=== PATIENT | female | born 1930 | race Caucasian/White ===

== ENCOUNTER 2018-01-07 16:19 | Inpatient (IN) | payer MEDICARE, MEDICAID ==
--- NOTE | 2018-01-07 16:39 | ED Physician Chart ---
ED Chief Complaint/HPI - Patient Information Date Seen:: 01/07/18 Time Seen:: 16:30 Chief Complaint:: increased agitation History of Present Illness:: At her extended care facility patient is reportedly been more agitated lately. She is having delusions and hallucinations. Claims that people are stealing her money and belongings. Allergies:: Allergies Allergy/AdvReac Type Severity Reaction Status Date / Time No Known Allergies Allergy Verified 01/25/16 13:42 Historian:: Patient, EMS Review:: Transfer documents Reviewed ED Review of Systems - Review of Systems General/Constitutional: No fever, No chills Skin: No skin lesions Head: No headache Eyes: No loss of vision ENT: No earache Neck: No neck pain, No swelling Cardio Vascular: No chest pain, No palpitations Pulmonary: No SOB GI: No nausea, No diarrhea G/U: No dysuria Musculoskeletal: No bone or joint pain Endocrine: No polyuria, No polydipsia Psychiatric: Prior psych history, Auditory hallucination Hematopoietic: No bruising Allergic/Immuno: No urticaria Neurological: No syncope, No focal symptoms ED Past Medical History - Past Medical History Past Medical History: Other (depression; psychosis; schizophrenia) Family History: Other (nonverbal) Social History: Non Smoker, No Alcohol, Care Facility Surgical History: None Psychiatricy History: Depression, Schizophrenia Medication: Reviewed Family Medical History - Family Member Father History Unknown: Yes Ethnicity: Living Status: Hx Family Cancer: No Hx Family Coronary Artery Disease: Yes Hx Family Congestive Heart Failure: No Hx Family Hypertension: No Hx Family Stroke: No Hx Family Diabetes: No Hx Family Seizures: No Hx Family Dementia: No Hx Family AIDS: No Hx Family HIV: No Hx Family COPD: No Hx Family Hepatitis: No Hx Family Psychiatric Problems: No Hx Family Tuberculosis: No Mother History Unknown: Yes Ethnicity: Living Status: Unknown Hx Family Cancer: (unknown) Hx Family Coronary Artery Disease: (unknown) Hx Family Congestive Heart Failure: (unknown) Hx Family Hypertension: (unknown) Hx Family Stroke: (unknown) Hx Family Diabetes: (unknown) Hx Family Seizures: (unknown) Hx Family Dementia: (unknown) Hx Family AIDS: (unknown) Hx Family COPD: (unknown) Hx Family Hepatitis: (unknown) Hx Family Psychiatric Problems: (unknown) Hx Family Tuberculosis: (unknown) ED Physical Exam - Physical Examination General/Constitutional: Awake, Well-developed, well-nourished, Alert, No distress, GCS 15, Non-toxic appearing, Ambulatory Head: Atraumatic Eyes: Lids, conjuctiva normal, PERRL, EOMI Skin: Nl inspection, No rash, No skin lesions, No ecchymosis, Well hydrated, No lymphadenopathy ENMT: External ears, nose nl, Nasal exam nl, Lips, teeth, gums nl Neck: Nontender, Full ROM w/o pain, No JVD, No nuchal rigidity, No bruit, No mass, No stridor Respiratory: Nl effort/Exclusion, Clear to Auscultation, No Wheeze/Rhonchi/Rales Other Cardio Vascular comments:: Heart sounds inaudible; pulse regular GI: No tenderness/rebounding/guarding, No organomegaly, No hernia, Normal BS's, Nondistended, No mass/bruits, No McBurney tenderness : No CVA tenderness Extremities: No tenderness or effusion, Full ROM, normal strength in all extremities, No edema, Normal digits & nails Neuro/Psych: No focal deficits Misc: Normal back, No paraspinal tenderness ED Labs/Radiology/EKG Results - Lab Results Results: Laboratory Results - last 24 hr 01/07/18 01/07/18 01/07/18 16:45 16:45 16:45 WBC 7.4 RBC 4.80 Hgb 13.7 Hct 41.1 MCV 85.8 MCH 28.5 MCHC Differential 33.2 RDW 14.1 Plt Count 248 MPV 8.0 Neutrophils % 64.8 Lymphocytes % 24.5 Monocytes % 9.4 Eosinophils % 0.5 Basophils % 0.8 Sodium 138 Potassium 4.0 Chloride 107 Carbon Dioxide 24.0 Anion Gap 11.0 BUN 22 Creatinine 0.9 Est GFR ( Amer) TNP Est GFR (Non-Af Amer) TNP BUN/Creatinine Ratio 24.4 Glucose 103 Calcium 9.3 Total Bilirubin 0.3 AST 16 ALT 15 Alkaline Phosphatase 68 Total Protein 6.6 Albumin 3.8 Globulin 2.8 Albumin/Globulin Ratio 1.4 Triglycerides 143 Cholesterol 218 H LDL Cholesterol Direct 137 HDL Cholesterol 55 TSH 1.02 - EKG Interpretations Rate & Rhythm: normal sinus rhythm with a rate at 82 [place]: normal Comments:: Right bundle-branch block ED Septic Shock - . Is Septic Shock (SBP<90, OR Lactate>4 mmol\L) present?: No ED Reassessment (Disposition) - Diagnosis Diagnosis:: Schizophrenia; paranoid ideation; dementia - Patient Disposition Admitted to:: [facility] Admitting Medical Physician:: Terrance Pantoja Admitting Psych Physician:: Adela Shin Condition at Disposition:: Stable, Unchanged
[2018-01-07 17:05] LABS: % BASOPHILS 0.8 % (0.0-2.0); % EOSINOPHILS 0.5 % (0.0-5.0); % LYMPHOCYTES 24.5 % (20.0-50.0); % MONOCYTES 9.4 % (2.0-10.0); % NEUTROPHILS 64.8 % (40.0-80.0); BASOPHILE ABSOLUTE 0.1 Th/cumm (0-0.2); HEMATOCRIT 41.1 % (41.0-60); HEMOGLOBIN 13.7 gm/dL (12-16); LYMPHOCYTE ABSOLUTE 1.8 Th/cmm (1.5-3.0); MEAN CELL VOLUME 85.8 fl (81-100); MEAN CORPUSCULAR HEMOGLOBIN 28.5 pg (27.0-31.0); MEAN CORPUSCULAR HGB CONC 33.2 pg (28.0-36.0); MONOCYTE ABSOLUTE 0.7 Th/cmm (0.3-1.0); NEUTROPHILE ABSOLUTE 4.8 Th/cmm (1.8-8.0); PLATELET COUNT 248 Th/cmm (150-400); RED CELL DISTRIBUTION WIDTH 14.1 % (11.5-20.0); WHITE BLOOD COUNT 7.4 Th/cmm (4.8-10.8)
[2018-01-07 17:18] LABS: ALB/GLOB RATIO 1.4 (1.0-1.8); ALBUMIN 3.8 gm/dL (3.7-5.3); ALKALINE PHOSPHATASE 68 U/L (34-104); BILIRUBIN,TOTAL 0.3 mg/dL (0.3-1.0); BUN - UREA NITROGEN 22 mg/dL (7-25); CALCIUM SERUM 9.3 mg/dL (8.6-10.3); CHLORIDE 107 mEq/L (98-107); CHOLESTEROL 218 mg/dL (<200); CREATININE - SERUM 0.9 mg/dL (0.6-1.2); GLUCOSE 103 mg/dL (70-105); HDL -HIGH DENSITY LIPOPROTEIN 55 mg/dL (23-92); SGOT 16 U/L (13-39); SGPT/ALT 15 U/L (7-52); SODIUM SERUM 138 mEq/L (136-145); TOTAL PROTEIN,SERUM 6.6 gm/dL (6.0-8.3); TRIGLYCERIDES 143 mg/dL (<150)
[2018-01-07 20:29] VITALS: BP 127/80
[2018-01-07] MEDS ORDERED: Promethazine DM 6.25/15mg-5mL 5 ML SYR PO PRN (21:55)
[2018-01-07] MEDS ORDERED: Magnesium Hydroxide (MOM) 30 mL UDC PO PRN (21:55)
--- NOTE | 2018-01-08 08:17 | History and Physical ---
History of Present Illness - HPI Chief Complaint: Increased agitation HPI: 87 y/o female who presents to [facility] ER for increased [facility]. At her extended care facility patient is reportedly been more agitated lately. She is having delusions and hallucinations. Claims that people are stealing her money and belongings. Patient was subsequently admitted for further evaluation and treatment. Vital Signs: Last Vital Signs Temp 98.2 F 01/08/18 06:14 Pulse 80 01/08/18 06:14 Resp 19 01/08/18 06:14 BP 123/74 01/08/18 06:14 Pulse Ox 97 01/08/18 06:14 Past Medical History Cardiovascular: Report: No Pertinent Hx Pulmonary: Report: No Pertinent Hx RADIUS GRINDER: Report: Dementia GI: Report: No Pertinent Hx Psych: Report: Depression, Psychosis, Schizophrenia Musculoskeletal: Report: No Pertinent Hx Infectious Disease: Report: No Pertinent Hx Renal/: Report: No Pertinent Hx Endocrine: Report: No Pertinent Hx Dermatology: Report: No Pertinent Hx - Past Surgical History Past Surgical History: No pertinent Hx Family Medical History - Family Member Father History Unknown: Yes Name:: Trista Fernandez Age: 87 Ethnicity: Living Status: Hx Family Cancer: (UNKNOWN) Hx Family Coronary Artery Disease: (UNKNOWN) Hx Family Congestive Heart Failure: (UNKNOWN) Hx Family Hypertension: (UNKNOWN) Hx Family Stroke: (UNKNOWN) Hx Family Diabetes: (UNKNOWN) Hx Family Seizures: (UNKNOWN) Hx Family Dementia: (UNKNOWN) Hx Family AIDS: (UNKNOWN) Hx Family HIV: No Hx Family COPD: (UNKNOWN) Hx Family Hepatitis: (UNKNOWN) Hx Family Psychiatric Problems: (UNKNOWN) Hx Family Tuberculosis: (UNKNOWN) Mother History Unknown: Yes Ethnicity: Unknown Living Status: Unknown Hx Family Cancer: (unknown) Hx Family Coronary Artery Disease: (unknown) Hx Family Congestive Heart Failure: (unknown) Hx Family Hypertension: (unknown) Hx Family Stroke: (unknown) Hx Family Diabetes: (unknown) Hx Family Seizures: (unknown) Hx Family Dementia: (unknown) Hx Family AIDS: (unknown) Hx Family COPD: (unknown) Hx Family Hepatitis: (unknown) Hx Family Psychiatric Problems: (unknown) Hx Family Tuberculosis: (unknown) Social History Smoke: No Alcohol: None Drugs: None Lives: Alone - Medications Home Medications: Home Medication Medication Instructions Recorded Type Acetaminophen [Tylenol] 650 mg PO Q4H PRN #0 tab 10/22/15 Rx Docusate Sodium [Colace] 100 mg PO BID #0 cap 10/22/15 Rx Donepezil Hcl [Aricept] 5 mg PO HS #0 tab 10/22/15 Rx Escitalopram Oxalate [Lexapro] 10 mg PO DAILY #0 tab 10/22/15 Rx Memantine [Namenda] 10 mg PO DAILY #0 tab 10/22/15 Rx Multivitamin w/ Minerals 1 tab PO DAILY #0 tab 10/22/15 Rx [Theragran M] Magnesium Hydroxide [Milk of 30 ml PO DAILY PRN #0 udc 02/05/16 Rx Magnesia] Ciprofloxacin [Cipro] 500 mg PO Q12HR tab 05/15/17 Rx Haloperidol [Haldol*] 0.5 mg PO HS tab 05/15/17 Rx Lactobacillus Rhamnosus 1 each PO DAILY cap.sprink 05/15/17 Rx [Culturelle] Lorazepam [Ativan] 0.5 mg PO Q4HR PRN tab 05/15/17 Rx Promethazine DM 6.25/15mg-5mL 5 ml PO Q8H PRN syr 05/15/17 Rx [Phenergan DM 6.25/15mg-5 mL] Zolpidem Tartrate [Ambien] 5 mg PO HS PRN tab 05/15/17 Rx traMADol HCl [Ultram*] 50 mg PO Q12H PRN tab 05/15/17 Rx - Allergies Allergies/Adverse Reactions: Allergies Allergy/AdvReac Type Severity Reaction Status Date / Time No Known Allergies Allergy Verified 01/07/18 19:00 Review of Systems - Review of Systems Constitutional: Report: No Significant Eyes: Report: No Significant Respiratory: Report: No Significant Cardiovascular: Report: No Significant Gastrointestinal: Report: No Significant Genitourinary: Report: No Significant Musculoskeletal: Report: No Significant Skin: Report: No Significant Neurological: Report: No Significant Physical Exam - Physical Exam HEENT: Report: Ears Nose Throat within normal limits, Pharnyx within normal limits Neck: Report: Within normal limits Cardiovascular Systems: Report: +s1/s2 noted, Regular, Rate and Rhythm Respiratory: Report: Breath Sounds are within normal limits, Clear to Auscultation of lung quiros Back: Report: Inspection of back is within normal limits. Extremities: Report: Non-tender to palpation. Skin: Report: Color of skin is within normal limits Neuro/Psych: Report: Mood affect is within normal limits, A+Ox3, CN II-XII intact - Lab Results All Lab Results last 24 hours: Laboratory Results - last 24 hr 01/07/18 01/07/18 01/07/18 16:45 16:45 16:45 WBC 7.4 RBC 4.80 Hgb 13.7 Hct 41.1 MCV 85.8 MCH 28.5 MCHC Differential 33.2 RDW 14.1 Plt Count 248 MPV 8.0 Neutrophils % 64.8 Lymphocytes % 24.5 Monocytes % 9.4 Eosinophils % 0.5 Basophils % 0.8 Sodium 138 Potassium 4.0 Chloride 107 Carbon Dioxide 24.0 Anion Gap 11.0 BUN 22 Creatinine 0.9 Est GFR ( Amer) TNP Est GFR (Non-Af Amer) TNP BUN/Creatinine Ratio 24.4 Glucose 103 Calcium 9.3 Total Bilirubin 0.3 AST 16 ALT 15 Alkaline Phosphatase 68 Total Protein 6.6 Albumin 3.8 Globulin 2.8 Albumin/Globulin Ratio 1.4 Triglycerides 143 Cholesterol 218 H LDL Cholesterol Direct 137 HDL Cholesterol 55 TSH 1.02 RPR 01/07/18 16:45 WBC RBC Hgb Hct MCV MCH MCHC Differential RDW Plt Count MPV Neutrophils % Lymphocytes % Monocytes % Eosinophils % Basophils % Sodium Potassium Chloride Carbon Dioxide Anion Gap BUN Creatinine Est GFR ( Amer) Est GFR (Non-Af Amer) BUN/Creatinine Ratio Glucose Calcium Total Bilirubin AST ALT Alkaline Phosphatase Total Protein Albumin Globulin Albumin/Globulin Ratio Triglycerides Cholesterol LDL Cholesterol Direct HDL Cholesterol TSH RPR NONREACTIVE - Assessment Assessment: psychosis depression schizophrenia dementia - Plan Plan: admit to [facility] continue current medications.
[2018-01-08] MEDS: Multivitamin w/ Minerals Tab PO SCH (09:00)
[2018-01-08] MEDS: Lactobacillus Rhamnosus GG 15 Billion CFU CAP.SPRINK PO SCH (09:00)
[2018-01-08] MEDS ORDERED: LACTOBACILLUS RHAMNOSUS PO SCH (09:00)
[2018-01-08 21:52] LABS: A1C % 5.3 % (4.0-6.0)
--- NOTE | 2018-01-08 22:17 | Psychiatric Evaluation ---
DATE OF SERVICE: 01/08/2018 PSYCHIATRIC EVALUATION IDENTIFYING DATA: The patient is an 87-year-old resident of a half-way facility. Information obtained by directly interviewing the patient as well as reviewing the admission papers. JUSTIFICATION FOR HOSPITALIZATION: The patient is admitted here on a voluntary basis in view of her agitation and delusional behavior. CHIEF COMPLAINT: "They are stealing all my stuff." HISTORY OF PRESENT ILLNESS: This is one of multiple psychiatric hospitalizations for this patient who is known to me from the previous psychiatric hospitalizations and treatments and the patient on the day of the hospitalization has been mentioning that people have been stealing her stuff and that she is getting frustrated. The patient has been not sleeping and has been stating that all her bank accounts have been taken away and she needs to be taken care of. The patient is very guarded and suspicious at this time. PAST PSYCHIATRIC HISTORY: The patient had been hospitalized on multiple occasions. MEDICAL HISTORY AND PHYSICAL EXAMINATION: Requested to be by Dr. Pantoja. SUBSTANCE ABUSE HISTORY: None. PHYSICAL OR SEXUAL ABUSE HISTORY: None. LEGAL PROBLEMS: None at this time. STRENGTH AND ASSETS: The patient is motivated. MENTAL STATUS EXAMINATION: The patient is an 87-year-old woman, thin built, superficially cooperative. Eye contact is poor. Mood is noted to be irritable. Affect is constricted. Insight and judgment are noted to be impaired. Impulse control is noted to be limited. The patient has been having difficult time to cope with the stress. The patient at this time is not able to contract for safety. The patient is very paranoid and delusional that all her property and inheritance has been taken away and the patient needs to be closely monitoring her relatives who wants to come and then visit her. The patient at this time is not willing to comply with any of the request to be calmed down. ASSESSMENT: The patient is still grossly psychotic. PLAN: To continue the patient with the supportive therapy. Encouraged the patient to verbalize the concerns rather than to act out. JOB# [id number]
--- NOTE | 2018-01-09 06:01 | General Progress Note ---
Subjective - Review of Systems Service Date: 01/09/18 Subjective: Patient is awake, alert, no acute distress T 98.3 P 119 BP 130/87 R 20 Objective - Results Result Diagrams: 01/07/18 16:45 01/07/18 16:45 Recent Labs: Laboratory Last Values WBC 7.4 Th/cmm (4.8-10.8) 01/07/18 16:45 RBC 4.80 Mil/cmm (3.80-5.20) 01/07/18 16:45 Hgb 13.7 gm/dL (12-16) 01/07/18 16:45 Hct 41.1 % (41.0-60) 01/07/18 16:45 MCV 85.8 fl (81-100) 01/07/18 16:45 MCH 28.5 pg (27.0-31.0) 01/07/18 16:45 MCHC Differential 33.2 pg (28.0-36.0) 01/07/18 16:45 RDW 14.1 % (11.5-20.0) 01/07/18 16:45 Plt Count 248 Th/cmm (150-400) 01/07/18 16:45 MPV 8.0 fl 01/07/18 16:45 Neutrophils % 64.8 % (40.0-80.0) 01/07/18 16:45 Lymphocytes % 24.5 % (20.0-50.0) 01/07/18 16:45 Monocytes % 9.4 % (2.0-10.0) 01/07/18 16:45 Eosinophils % 0.5 % (0.0-5.0) 01/07/18 16:45 Basophils % 0.8 % (0.0-2.0) 01/07/18 16:45 Sodium 138 mEq/L (136-145) 01/07/18 16:45 Potassium 4.0 mEq/L (3.5-5.1) 01/07/18 16:45 Chloride 107 mEq/L (98-107) 01/07/18 16:45 Carbon Dioxide 24.0 mEq/L (21.0-31.0) 01/07/18 16:45 Anion Gap 11.0 (7.0-16.0) 01/07/18 16:45 BUN 22 mg/dL (7-25) 01/07/18 16:45 Creatinine 0.9 mg/dL (0.6-1.2) 01/07/18 16:45 Est GFR ( Amer) TNP 01/07/18 16:45 Est GFR (Non-Af Amer) TNP 01/07/18 16:45 BUN/Creatinine Ratio 24.4 01/07/18 16:45 Glucose 103 mg/dL (70-105) 01/07/18 16:45 Hemoglobin A1c % 5.3 % (4.0-6.0) 01/07/18 16:45 Calcium 9.3 mg/dL (8.6-10.3) 01/07/18 16:45 Total Bilirubin 0.3 mg/dL (0.3-1.0) 01/07/18 16:45 AST 16 U/L (13-39) 01/07/18 16:45 ALT 15 U/L (7-52) 01/07/18 16:45 Alkaline Phosphatase 68 U/L (34-104) 01/07/18 16:45 Total Protein 6.6 gm/dL (6.0-8.3) 01/07/18 16:45 Albumin 3.8 gm/dL (3.7-5.3) 01/07/18 16:45 Globulin 2.8 gm/dL 01/07/18 16:45 Albumin/Globulin Ratio 1.4 (1.0-1.8) 01/07/18 16:45 Triglycerides 143 mg/dL (<150) 01/07/18 16:45 Cholesterol 218 mg/dL (<200) H 01/07/18 16:45 LDL Cholesterol Direct 137 mg/dL (75-193) 01/07/18 16:45 HDL Cholesterol 55 mg/dL (23-92) 01/07/18 16:45 TSH 1.02 uIU/ml (0.34-5.60) 01/07/18 16:45 RPR NONREACTIVE (NONREACTIVE) 01/07/18 16:45 - Physical Exam Vitals and I&O: Vital Signs Temp 98.3 F 01/08/18 21:09 Pulse 119 01/08/18 21:09 Resp 20 01/08/18 21:09 BP 130/87 01/08/18 21:09 Pulse Ox 93 01/08/18 21:09 Intake & Output 01/08/18 01/08/18 01/09/18 06:59 18:59 06:59 Intake Total 120 1350 Balance 120 1350 Intake: Oral 120 1350 Other: # Voids 3 3 # Bowel Movements 0 Stool Characteristics Formed Active Medications: Current Medications Acetaminophen (Tylenol) 650 mg PO Q4H PRN PRN Reason: MILD PAIN (LEVEL 1-3) Stop: 03/08/18 21:54 Docusate Sodium (Colace) 100 mg PO BID [facility] Stop: 03/09/18 08:59 Last Admin: 01/08/18 16:59 Dose: 100 mg Donepezil HCl (Aricept) 5 mg PO HS [facility] Stop: 03/09/18 20:59 Last Admin: 01/08/18 20:47 Dose: 5 mg Escitalopram Oxalate (Lexapro) 10 mg PO DAILY [facility]; Protocol Stop: 03/09/18 08:59 Last Admin: 01/08/18 09:00 Dose: 10 mg Haloperidol (Haldol) 0.5 mg PO HS [facility]; Protocol Stop: 03/09/18 20:59 Last Admin: 01/08/18 20:47 Dose: 0.5 mg Lactobacillus Rhamnosus (Culturelle 15b) 1 each PO DAILY [facility] Stop: 03/09/18 08:59 Last Admin: 01/08/18 09:00 Dose: 1 each Lorazepam (Ativan) 0.5 mg PO Q4HR PRN; Protocol PRN Reason: Anxiety Stop: 03/08/18 21:54 Last Admin: 01/08/18 16:59 Dose: 0.5 mg Magnesium Hydroxide (Milk Of Magnesia) 30 ml PO DAILY PRN PRN Reason: Constipation Stop: 03/08/18 21:54 Memantine (Namenda) 10 mg PO DAILY [facility] Stop: 03/09/18 08:59 Last Admin: 01/08/18 09:00 Dose: 10 mg Promethazine HCl/Dextromethorphan (Phenergan Dm 6.25/15mg-5 Ml) 5 ml PO Q8H PRN PRN Reason: Cough Stop: 03/08/18 21:54 Tramadol HCl (Ultram) 50 mg PO BID PRN PRN Reason: Pain (Severe) Stop: 03/08/18 21:54 Zolpidem Tartrate (Ambien) 5 mg PO HS PRN PRN Reason: Insomnia Stop: 03/08/18 21:54 Last Admin: 01/08/18 20:48 Dose: 5 mg General: No acute distress HEENT: Atraumatic, PERRLA, EOMI Neck: Supple Cardiovascular: Regular rate, Normal S1, Normal S2 Lungs: Clear to auscultation Abdomen: Bowel sounds Extremities: no Clubbing, no Cyanosis, no Edema - Procedures Procedures: Procedures Procedure Code Date GROUP PSYCHOTHERAPY 76822 10/12/15 GROUP PSYCHOTHERAPY GZHZZZZ 10/12/15 GROUP PSYCHOTHERAPY 34845 03/15/15 GROUP PSYCHOTHERAPY GZHZZZZ 03/15/15 OTHER GROUP THERAPY 94.44 12/18/14 Assessment/Plan - Assessment Assessment: psychosis depression schizophrenia dementia - Plan [facility] current medications.
[2018-01-09] MEDS: Lactobacillus Rhamnosus GG 15 Billion CFU CAP.SPRINK PO SCH (09:57)
[2018-01-09] MEDS: Multivitamin w/ Minerals Tab PO SCH (09:57)
--- NOTE | 2018-01-09 16:34 | Progress Notes ---
DATE: 01/09/2018 SUBJECTIVE: Staff was spoke to. The patient is interviewed. Mood is noted to be irritable. The patient has paranoid delusions. Coping skills are noted to be extremely poor. Insight and judgment also noted to be limited. The patient has been having difficult time to cope with the stress. The patient is feeling frustrated at this time. The patient is holding the doll and stating that it is her baby and the patient is also noted to be extremely delusional and is stating that her has been here last night and he has been trying to give her a lot of pills and he wants to kill her. That is the reason why the patient is scared of taking any of the medications. ASSESSMENT: The patient is still grossly psychotic. PLAN: To continue the patient with the supportive therapy. Encouraged the patient to verbalize the concerns rather than to act out. JOB# [id number]
--- NOTE | 2018-01-10 06:10 | General Progress Note ---
Subjective - Review of Systems Service Date: 01/10/18 Subjective: Patient is awake, alert, no acute distress T 98.6 P 81 BP 127/62 R 19 Objective - Results Result Diagrams: 01/07/18 16:45 01/07/18 16:45 Recent Labs: Laboratory Last Values WBC 7.4 Th/cmm (4.8-10.8) 01/07/18 16:45 RBC 4.80 Mil/cmm (3.80-5.20) 01/07/18 16:45 Hgb 13.7 gm/dL (12-16) 01/07/18 16:45 Hct 41.1 % (41.0-60) 01/07/18 16:45 MCV 85.8 fl (81-100) 01/07/18 16:45 MCH 28.5 pg (27.0-31.0) 01/07/18 16:45 MCHC Differential 33.2 pg (28.0-36.0) 01/07/18 16:45 RDW 14.1 % (11.5-20.0) 01/07/18 16:45 Plt Count 248 Th/cmm (150-400) 01/07/18 16:45 MPV 8.0 fl 01/07/18 16:45 Neutrophils % 64.8 % (40.0-80.0) 01/07/18 16:45 Lymphocytes % 24.5 % (20.0-50.0) 01/07/18 16:45 Monocytes % 9.4 % (2.0-10.0) 01/07/18 16:45 Eosinophils % 0.5 % (0.0-5.0) 01/07/18 16:45 Basophils % 0.8 % (0.0-2.0) 01/07/18 16:45 Sodium 138 mEq/L (136-145) 01/07/18 16:45 Potassium 4.0 mEq/L (3.5-5.1) 01/07/18 16:45 Chloride 107 mEq/L (98-107) 01/07/18 16:45 Carbon Dioxide 24.0 mEq/L (21.0-31.0) 01/07/18 16:45 Anion Gap 11.0 (7.0-16.0) 01/07/18 16:45 BUN 22 mg/dL (7-25) 01/07/18 16:45 Creatinine 0.9 mg/dL (0.6-1.2) 01/07/18 16:45 Est GFR ( Amer) TNP 01/07/18 16:45 Est GFR (Non-Af Amer) TNP 01/07/18 16:45 BUN/Creatinine Ratio 24.4 01/07/18 16:45 Glucose 103 mg/dL (70-105) 01/07/18 16:45 Hemoglobin A1c % 5.3 % (4.0-6.0) 01/07/18 16:45 Calcium 9.3 mg/dL (8.6-10.3) 01/07/18 16:45 Total Bilirubin 0.3 mg/dL (0.3-1.0) 01/07/18 16:45 AST 16 U/L (13-39) 01/07/18 16:45 ALT 15 U/L (7-52) 01/07/18 16:45 Alkaline Phosphatase 68 U/L (34-104) 01/07/18 16:45 Total Protein 6.6 gm/dL (6.0-8.3) 01/07/18 16:45 Albumin 3.8 gm/dL (3.7-5.3) 01/07/18 16:45 Globulin 2.8 gm/dL 01/07/18 16:45 Albumin/Globulin Ratio 1.4 (1.0-1.8) 01/07/18 16:45 Triglycerides 143 mg/dL (<150) 01/07/18 16:45 Cholesterol 218 mg/dL (<200) H 01/07/18 16:45 LDL Cholesterol Direct 137 mg/dL (75-193) 01/07/18 16:45 HDL Cholesterol 55 mg/dL (23-92) 01/07/18 16:45 TSH 1.02 uIU/ml (0.34-5.60) 01/07/18 16:45 RPR NONREACTIVE (NONREACTIVE) 01/07/18 16:45 - Physical Exam Vitals and I&O: Vital Signs Temp 98.6 F 01/09/18 20:17 Pulse 81 01/09/18 20:17 Resp 19 01/09/18 20:17 BP 127/62 01/09/18 20:17 Pulse Ox 94 01/09/18 20:17 Intake & Output 01/09/18 01/09/18 01/10/18 06:59 18:59 06:59 Intake Total 960 240 Output Total 1 Balance 960 239 Intake: Oral 960 240 Output: Urine/Stool Mix 1 Other: # Voids 3 1 # Bowel Movements 1 Active Medications: Current Medications Acetaminophen (Tylenol) 650 mg PO Q4H PRN PRN Reason: MILD PAIN (LEVEL 1-3) Stop: 03/08/18 21:54 Docusate Sodium (Colace) 100 mg PO BID [facility] Stop: 03/09/18 08:59 Last Admin: 01/09/18 17:42 Dose: 100 mg Donepezil HCl (Aricept) 5 mg PO HS [facility] Stop: 03/09/18 20:59 Last Admin: 01/09/18 21:00 Dose: 5 mg Escitalopram Oxalate (Lexapro) 10 mg PO DAILY [facility]; Protocol Stop: 03/09/18 08:59 Last Admin: 01/09/18 09:57 Dose: 10 mg Haloperidol (Haldol) 0.5 mg PO HS [facility]; Protocol Stop: 03/09/18 20:59 Last Admin: 01/09/18 20:59 Dose: 0.5 mg Lactobacillus Rhamnosus (Culturelle 15b) 1 each PO DAILY [facility] Stop: 03/09/18 08:59 Last Admin: 01/09/18 09:57 Dose: 1 each Lorazepam (Ativan) 0.5 mg PO Q4HR PRN; Protocol PRN Reason: Anxiety Stop: 03/08/18 21:54 Last Admin: 01/08/18 16:59 Dose: 0.5 mg Magnesium Hydroxide (Milk Of Magnesia) 30 ml PO DAILY PRN PRN Reason: Constipation Stop: 03/08/18 21:54 Memantine (Namenda) 10 mg PO DAILY [facility] Stop: 03/09/18 08:59 Last Admin: 01/09/18 09:57 Dose: 10 mg Promethazine HCl/Dextromethorphan (Phenergan Dm 6.25/15mg-5 Ml) 5 ml PO Q8H PRN PRN Reason: Cough Stop: 03/08/18 21:54 Tramadol HCl (Ultram) 50 mg PO BID PRN PRN Reason: Pain (Severe) Stop: 03/08/18 21:54 Zolpidem Tartrate (Ambien) 5 mg PO HS PRN PRN Reason: Insomnia Stop: 03/08/18 21:54 Last Admin: 01/08/18 20:48 Dose: 5 mg General: No acute distress HEENT: Atraumatic, PERRLA, EOMI Neck: Supple Cardiovascular: Regular rate, Normal S1, Normal S2 Lungs: Clear to auscultation Abdomen: Bowel sounds Extremities: no Clubbing, no Cyanosis, no Edema - Procedures Procedures: Procedures Procedure Code Date GROUP PSYCHOTHERAPY 93015 10/12/15 GROUP PSYCHOTHERAPY GZHZZZZ 10/12/15 GROUP PSYCHOTHERAPY 25114 03/15/15 GROUP PSYCHOTHERAPY GZHZZZZ 03/15/15 OTHER GROUP THERAPY 94.44 12/18/14 Assessment/Plan - Assessment Assessment: psychosis depression schizophrenia dementia - Plan Plan: continue current medications.
[2018-01-10] MEDS: Lactobacillus Rhamnosus GG 15 Billion CFU CAP.SPRINK PO SCH (09:02)
[2018-01-10] MEDS: Multivitamin w/ Minerals Tab PO SCH (09:02)
--- NOTE | 2018-01-10 17:41 | Progress Notes ---
DATE: 01/10/2018 SUBJECTIVE: Staff was spoken to. The patient is interviewed. Mood is noted to be irritable. Affect is constricted. Insight and judgment at this time are noted to be still impaired. Impulse control is noted to be limited. Coping skills are noted to be limited. The patient has been having difficult time to cope with the stress. The patient continues to be very paranoid and is holding the dolls and stating that she is talking to her daughter and that is her baby. The patient is also still very much preoccupied with the trying to come in and hurt her with a bunch of pills. ASSESSMENT: The patient is still grossly psychotic. PLAN: To continue the patient with the supportive therapy and followup. [facility]# [id number]
--- NOTE | 2018-01-11 08:19 | General Progress Note ---
Subjective - Review of Systems Service Date: 01/11/18 Subjective: Patient is awake, alert, no acute distress T 98.3 P 80 BP 124/71 R 19 Objective - Results Result Diagrams: 01/07/18 16:45 01/07/18 16:45 Recent Labs: Laboratory Last Values WBC 7.4 Th/cmm (4.8-10.8) 01/07/18 16:45 RBC 4.80 Mil/cmm (3.80-5.20) 01/07/18 16:45 Hgb 13.7 gm/dL (12-16) 01/07/18 16:45 Hct 41.1 % (41.0-60) 01/07/18 16:45 MCV 85.8 fl (81-100) 01/07/18 16:45 MCH 28.5 pg (27.0-31.0) 01/07/18 16:45 MCHC Differential 33.2 pg (28.0-36.0) 01/07/18 16:45 RDW 14.1 % (11.5-20.0) 01/07/18 16:45 Plt Count 248 Th/cmm (150-400) 01/07/18 16:45 MPV 8.0 fl 01/07/18 16:45 Neutrophils % 64.8 % (40.0-80.0) 01/07/18 16:45 Lymphocytes % 24.5 % (20.0-50.0) 01/07/18 16:45 Monocytes % 9.4 % (2.0-10.0) 01/07/18 16:45 Eosinophils % 0.5 % (0.0-5.0) 01/07/18 16:45 Basophils % 0.8 % (0.0-2.0) 01/07/18 16:45 Sodium 138 mEq/L (136-145) 01/07/18 16:45 Potassium 4.0 mEq/L (3.5-5.1) 01/07/18 16:45 Chloride 107 mEq/L (98-107) 01/07/18 16:45 Carbon Dioxide 24.0 mEq/L (21.0-31.0) 01/07/18 16:45 Anion Gap 11.0 (7.0-16.0) 01/07/18 16:45 BUN 22 mg/dL (7-25) 01/07/18 16:45 Creatinine 0.9 mg/dL (0.6-1.2) 01/07/18 16:45 Est GFR ( Amer) TNP 01/07/18 16:45 Est GFR (Non-Af Amer) TNP 01/07/18 16:45 BUN/Creatinine Ratio 24.4 01/07/18 16:45 Glucose 103 mg/dL (70-105) 01/07/18 16:45 Hemoglobin A1c % 5.3 % (4.0-6.0) 01/07/18 16:45 Calcium 9.3 mg/dL (8.6-10.3) 01/07/18 16:45 Total Bilirubin 0.3 mg/dL (0.3-1.0) 01/07/18 16:45 AST 16 U/L (13-39) 01/07/18 16:45 ALT 15 U/L (7-52) 01/07/18 16:45 Alkaline Phosphatase 68 U/L (34-104) 01/07/18 16:45 Total Protein 6.6 gm/dL (6.0-8.3) 01/07/18 16:45 Albumin 3.8 gm/dL (3.7-5.3) 01/07/18 16:45 Globulin 2.8 gm/dL 01/07/18 16:45 Albumin/Globulin Ratio 1.4 (1.0-1.8) 01/07/18 16:45 Triglycerides 143 mg/dL (<150) 01/07/18 16:45 Cholesterol 218 mg/dL (<200) H 01/07/18 16:45 LDL Cholesterol Direct 137 mg/dL (75-193) 01/07/18 16:45 HDL Cholesterol 55 mg/dL (23-92) 01/07/18 16:45 TSH 1.02 uIU/ml (0.34-5.60) 01/07/18 16:45 RPR NONREACTIVE (NONREACTIVE) 01/07/18 16:45 - Physical Exam Vitals and I&O: Vital Signs Temp 98.3 F 01/11/18 06:16 Pulse 80 01/11/18 06:16 Resp 19 01/11/18 06:16 BP 124/71 01/11/18 06:16 Pulse Ox 96 01/11/18 06:16 Intake & Output 01/10/18 01/11/18 01/11/18 18:59 06:59 18:59 Intake Total 180 Balance 180 Intake: Oral 180 Other: # Voids 1 # Bowel Movements 0 Active Medications: Current Medications Acetaminophen (Tylenol) 650 mg PO Q4H PRN PRN Reason: MILD PAIN (LEVEL 1-3) Stop: 03/08/18 21:54 Docusate Sodium (Colace) 100 mg PO BID [facility] Stop: 03/09/18 08:59 Last Admin: 01/10/18 17:27 Dose: Not Given Donepezil HCl (Aricept) 5 mg PO HS [facility] Stop: 03/09/18 20:59 Last Admin: 01/10/18 20:20 Dose: 5 mg Escitalopram Oxalate (Lexapro) 10 mg PO DAILY [facility]AYNA; Protocol Stop: 03/09/18 08:59 Last Admin: 01/10/18 09:02 Dose: 10 mg Haloperidol (Haldol) 0.5 mg PO HS SHAYNA; Protocol Stop: 03/09/18 20:59 Last Admin: 01/10/18 20:21 Dose: 0.5 mg Lactobacillus Rhamnosus (Culturelle 15b) 1 each PO DAILY [facility] Stop: 03/09/18 08:59 Last Admin: 01/10/18 09:02 Dose: 1 each Lorazepam (Ativan) 0.5 mg PO Q4HR PRN; Protocol PRN Reason: Anxiety Stop: 03/08/18 21:54 Last Admin: 01/10/18 20:20 Dose: 0.5 mg Magnesium Hydroxide (Milk Of Magnesia) 30 ml PO DAILY PRN PRN Reason: Constipation Stop: 03/08/18 21:54 Memantine (Namenda) 10 mg PO DAILY [facility] Stop: 03/09/18 08:59 Last Admin: 01/10/18 09:02 Dose: 10 mg Promethazine HCl/Dextromethorphan (Phenergan Dm 6.25/15mg-5 Ml) 5 ml PO Q8H PRN PRN Reason: Cough Stop: 03/08/18 21:54 Tramadol HCl (Ultram) 50 mg PO BID PRN PRN Reason: Pain (Severe) Stop: 03/08/18 21:54 Zolpidem Tartrate (Ambien) 5 mg PO HS PRN PRN Reason: Insomnia Stop: 03/08/18 21:54 Last Admin: 01/10/18 20:20 Dose: 5 mg General: No acute distress HEENT: Atraumatic, PERRLA, EOMI Neck: Supple Cardiovascular: Regular rate, Normal S1, Normal S2 Lungs: Clear to auscultation Abdomen: Bowel sounds Extremities: no Clubbing, no Cyanosis, no Edema - Procedures Procedures: Procedures Procedure Code Date GROUP PSYCHOTHERAPY 65035 10/12/15 GROUP PSYCHOTHERAPY GZHZZZZ 10/12/15 GROUP PSYCHOTHERAPY 44465 03/15/15 GROUP PSYCHOTHERAPY GZHZZZZ 03/15/15 OTHER GROUP THERAPY 94.44 12/18/14 Assessment/Plan - Assessment Assessment: psychosis depression schizophrenia dementia - Plan Plan: continue current medications.
[2018-01-11] MEDS: Lactobacillus Rhamnosus GG 15 Billion CFU CAP.SPRINK PO SCH (09:58)
[2018-01-11] MEDS: Multivitamin w/ Minerals Tab PO SCH (09:58)
--- NOTE | 2018-01-12 01:35 | Consultation ---
DATE OF CONSULTATION: 01/09/2018 REFERRING PHYSICIAN: Adela Shin MD TYPE OF CONSULTATION: Psychology. HISTORY OF PRESENT ILLNESS: The patient is an 87-year-old female. The patient is known to this play writer from multiple previous hospitalizations. The patient is a resident of [facility]. The patient is being admitted due to acute agitation as well as delusions. The patient reports that she believes that other residents and staff are stealing her belongings. The patient presents as extremely confused. The patient denied any suicidal ideation, plan or intention. PAST MEDICAL HISTORY: Please see history and physical by Dr. Pantoja. PAST PSYCHIATRIC HISTORY: The patient has multiple previous hospitalizations here at [facility] on the Geropsychiatric unit. 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 The patient is under the care of a psychiatrist at her placement. SUBSTANCE ABUSE HISTORY: None. PSYCHOSOCIAL HISTORY: The patient did not answer any of the questions including occupational history, educational history, or caodaism affiliation. The patient did not answer questions about history of physical or sexual abuse or current legal problems. The patient did not answer questions about family involvement. MENTAL STATUS EXAMINATION: The patient appears to be frail and her stated age. Attitude is uncooperative. Eye contact is poor. Mood is irritable. Affect is constricted. Speech is slow and delayed. Thought process shows to be confused. The patient's verbalizing suspiciousness about other residents and staff stealing her belongings. There is evidence of paranoid ideation. The patient denied any auditory or visual hallucinations. The patient's behavior on the unit has been somewhat redirectable. The patient is holding onto a doll and claiming that this is her baby. This delusion is persistent and has been part of her medical record upon each admission. She denied any suicidal ideation, plan or intention. Impulse control is limited. Concentration is poor. Sensorium is oriented to self only. The patient did not participate in the memory assessment. The patient did not participate in interpretation of proverbs. Insight is impaired. Judgment is impaired. DIAGNOSTIC IMPRESSION: AXIS I: 1. History of dementia with behavioral disturbance. 2. History of psychotic disorder, not otherwise specified. AXIS II: Deferred. AXIS III: Per Dr. Pantoja. TREATMENT PLAN: The patient has been seen by Dr. Shin for psychiatric evaluation and for the management of the patient's psychotropic medications. We will provide supportive psychotherapy to include reality orientation, differentiation and integration. We will continue to reassess the patient to determine whether she is able to demonstrate the capacity to benefit from psychotherapeutic services. We will continue behavioral management to include limit setting and coping skills. We will encourage the patient to be able to demonstrate emotional and self-regulation prior to her discharge. We will provide motivational enhancement for her to become compliant and stay compliant with all aspects of her care and treatment. Thank you, Dr. Shin for this consult and the opportunity to participate in this patient's care. JOB# [id number] SANG
--- NOTE | 2018-01-12 02:19 | Progress Notes ---
DATE: 01/11/2018 PSYCHIATRIC PROGRESS NOTE SUBJECTIVE: Staff was spoken to. The patient is interviewed. Mood is noted to be irritable. Affect is constricted. Insight and judgment at this time are noted to be still impaired. Impulse control is noted to be limited. Continues to be very paranoid. The patient has been having difficult time to cope with the stress. The patient is still hanging on to her toy and doll and stating that these are babies and she cannot let anyone touch. ASSESSMENT: The patient is still grossly psychotic. PLAN: To continue the patient with supportive therapy. I encouraged the patient to verbalize the concerns rather than to act out. JOB# [id number]
--- NOTE | 2018-01-12 08:22 | General Progress Note ---
Subjective - Review of Systems Service Date: 01/12/18 Subjective: Patient is awake, alert, no acute distress T 98.7 P 67 BP 103/55 R 20 Objective - Results Result Diagrams: 01/07/18 16:45 01/07/18 16:45 Recent Labs: Laboratory Last Values WBC 7.4 Th/cmm (4.8-10.8) 01/07/18 16:45 RBC 4.80 Mil/cmm (3.80-5.20) 01/07/18 16:45 Hgb 13.7 gm/dL (12-16) 01/07/18 16:45 Hct 41.1 % (41.0-60) 01/07/18 16:45 MCV 85.8 fl (81-100) 01/07/18 16:45 MCH 28.5 pg (27.0-31.0) 01/07/18 16:45 MCHC Differential 33.2 pg (28.0-36.0) 01/07/18 16:45 RDW 14.1 % (11.5-20.0) 01/07/18 16:45 Plt Count 248 Th/cmm (150-400) 01/07/18 16:45 MPV 8.0 fl 01/07/18 16:45 Neutrophils % 64.8 % (40.0-80.0) 01/07/18 16:45 Lymphocytes % 24.5 % (20.0-50.0) 01/07/18 16:45 Monocytes % 9.4 % (2.0-10.0) 01/07/18 16:45 Eosinophils % 0.5 % (0.0-5.0) 01/07/18 16:45 Basophils % 0.8 % (0.0-2.0) 01/07/18 16:45 Sodium 138 mEq/L (136-145) 01/07/18 16:45 Potassium 4.0 mEq/L (3.5-5.1) 01/07/18 16:45 Chloride 107 mEq/L (98-107) 01/07/18 16:45 Carbon Dioxide 24.0 mEq/L (21.0-31.0) 01/07/18 16:45 Anion Gap 11.0 (7.0-16.0) 01/07/18 16:45 BUN 22 mg/dL (7-25) 01/07/18 16:45 Creatinine 0.9 mg/dL (0.6-1.2) 01/07/18 16:45 Est GFR ( Amer) TNP 01/07/18 16:45 Est GFR (Non-Af Amer) TNP 01/07/18 16:45 BUN/Creatinine Ratio 24.4 01/07/18 16:45 Glucose 103 mg/dL (70-105) 01/07/18 16:45 Hemoglobin A1c % 5.3 % (4.0-6.0) 01/07/18 16:45 Calcium 9.3 mg/dL (8.6-10.3) 01/07/18 16:45 Total Bilirubin 0.3 mg/dL (0.3-1.0) 01/07/18 16:45 AST 16 U/L (13-39) 01/07/18 16:45 ALT 15 U/L (7-52) 01/07/18 16:45 Alkaline Phosphatase 68 U/L (34-104) 01/07/18 16:45 Total Protein 6.6 gm/dL (6.0-8.3) 01/07/18 16:45 Albumin 3.8 gm/dL (3.7-5.3) 01/07/18 16:45 Globulin 2.8 gm/dL 01/07/18 16:45 Albumin/Globulin Ratio 1.4 (1.0-1.8) 01/07/18 16:45 Triglycerides 143 mg/dL (<150) 01/07/18 16:45 Cholesterol 218 mg/dL (<200) H 01/07/18 16:45 LDL Cholesterol Direct 137 mg/dL (75-193) 01/07/18 16:45 HDL Cholesterol 55 mg/dL (23-92) 01/07/18 16:45 TSH 1.02 uIU/ml (0.34-5.60) 01/07/18 16:45 RPR NONREACTIVE (NONREACTIVE) 01/07/18 16:45 - Physical Exam Vitals and I&O: Vital Signs Temp 98.7 F 01/12/18 06:24 Pulse 67 01/12/18 06:24 Resp 20 01/12/18 06:24 BP 103/55 01/12/18 06:24 Pulse Ox 96 01/12/18 06:24 Intake & Output 01/11/18 01/12/18 01/12/18 18:59 06:59 18:59 Intake Total 800 240 Balance 800 240 Intake: Oral 800 240 Other: # Voids 4 3 # Bowel Movements 1 0 Active Medications: Current Medications Acetaminophen (Tylenol) 650 mg PO Q4H PRN PRN Reason: MILD PAIN (LEVEL 1-3) Stop: 03/08/18 21:54 Docusate Sodium (Colace) 100 mg PO BID [facility] Stop: 03/09/18 08:59 Last Admin: 01/11/18 16:10 Dose: 100 mg Donepezil HCl (Aricept) 5 mg PO HS [facility] Stop: 03/09/18 20:59 Last Admin: 01/11/18 20:47 Dose: 5 mg Escitalopram Oxalate (Lexapro) 10 mg PO DAILY [facility]; Protocol Stop: 03/09/18 08:59 Last Admin: 01/11/18 09:57 Dose: 10 mg Haloperidol (Haldol) 0.5 mg PO HS [facility]; Protocol Stop: 03/09/18 20:59 Last Admin: 01/11/18 20:47 Dose: 0.5 mg Lactobacillus Rhamnosus (Culturelle 15b) 1 each PO DAILY [facility] Stop: 03/09/18 08:59 Last Admin: 01/11/18 09:58 Dose: 1 each Lorazepam (Ativan) 0.5 mg PO Q4HR PRN; Protocol PRN Reason: Anxiety Stop: 03/08/18 21:54 Last Admin: 01/10/18 20:20 Dose: 0.5 mg Magnesium Hydroxide (Milk Of Magnesia) 30 ml PO DAILY PRN PRN Reason: Constipation Stop: 03/08/18 21:54 Memantine (Namenda) 10 mg PO DAILY [facility] Stop: 03/09/18 08:59 Last Admin: 01/11/18 09:58 Dose: 10 mg Promethazine HCl/Dextromethorphan (Phenergan Dm 6.25/15mg-5 Ml) 5 ml PO Q8H PRN PRN Reason: Cough Stop: 03/08/18 21:54 Tramadol HCl (Ultram) 50 mg PO BID PRN PRN Reason: Pain (Severe) Stop: 03/08/18 21:54 Zolpidem Tartrate (Ambien) 5 mg PO HS PRN PRN Reason: Insomnia Stop: 03/08/18 21:54 Last Admin: 01/11/18 20:48 Dose: 5 mg General: No acute distress HEENT: Atraumatic, PERRLA, EOMI Neck: Supple Cardiovascular: Regular rate, Normal S1, Normal S2 Lungs: Clear to auscultation Abdomen: Bowel sounds Extremities: no Clubbing, no Cyanosis, no Edema - Procedures Procedures: Procedures Procedure Code Date GROUP PSYCHOTHERAPY 22095 10/12/15 GROUP PSYCHOTHERAPY GZHZZZZ 10/12/15 GROUP PSYCHOTHERAPY 98968 03/15/15 GROUP PSYCHOTHERAPY GZHZZZZ 03/15/15 OTHER GROUP THERAPY 94.44 12/18/14 Assessment/Plan - Assessment Assessment: psychosis depression schizophrenia dementia - Plan Plan: continue current medications.
[2018-01-12] MEDS: Multivitamin w/ Minerals Tab PO SCH (08:39)
[2018-01-12] MEDS: Lactobacillus Rhamnosus GG 15 Billion CFU CAP.SPRINK PO SCH (08:39)
--- NOTE | 2018-01-12 15:46 | Progress Notes ---
DATE: 01/12/2018 SUBJECTIVE: Staff was spoken to. The patient is interviewed. Mood is noted to be irritable. Affect is constricted. Insight and judgment at this time are noted to be still impaired. Impulse control is noted to be poor. The patient has been very paranoid and has been hanging on to her doll and accusing people are trying to steal her money and particularly her family members about her inheritance and stating that her has been still trying to kill her. ASSESSMENT: The patient is still impulsive. PLAN: To continue the patient with the supportive therapy. I encouraged the patient to verbalize the concerns. The patient is going to be continued with the current medications and followup. JOB# [id number]
--- NOTE | 2018-01-13 08:21 | General Progress Note ---
Subjective - Review of Systems Service Date: 01/13/18 Subjective: Patient is awake, alert, no acute distress T 98.8 P 72 BP 123/67 R 20 Objective - Results Result Diagrams: 01/07/18 16:45 01/07/18 16:45 Recent Labs: Laboratory Last Values WBC 7.4 Th/cmm (4.8-10.8) 01/07/18 16:45 RBC 4.80 Mil/cmm (3.80-5.20) 01/07/18 16:45 Hgb 13.7 gm/dL (12-16) 01/07/18 16:45 Hct 41.1 % (41.0-60) 01/07/18 16:45 MCV 85.8 fl (81-100) 01/07/18 16:45 MCH 28.5 pg (27.0-31.0) 01/07/18 16:45 MCHC Differential 33.2 pg (28.0-36.0) 01/07/18 16:45 RDW 14.1 % (11.5-20.0) 01/07/18 16:45 Plt Count 248 Th/cmm (150-400) 01/07/18 16:45 MPV 8.0 fl 01/07/18 16:45 Neutrophils % 64.8 % (40.0-80.0) 01/07/18 16:45 Lymphocytes % 24.5 % (20.0-50.0) 01/07/18 16:45 Monocytes % 9.4 % (2.0-10.0) 01/07/18 16:45 Eosinophils % 0.5 % (0.0-5.0) 01/07/18 16:45 Basophils % 0.8 % (0.0-2.0) 01/07/18 16:45 Sodium 138 mEq/L (136-145) 01/07/18 16:45 Potassium 4.0 mEq/L (3.5-5.1) 01/07/18 16:45 Chloride 107 mEq/L (98-107) 01/07/18 16:45 Carbon Dioxide 24.0 mEq/L (21.0-31.0) 01/07/18 16:45 Anion Gap 11.0 (7.0-16.0) 01/07/18 16:45 BUN 22 mg/dL (7-25) 01/07/18 16:45 Creatinine 0.9 mg/dL (0.6-1.2) 01/07/18 16:45 Est GFR ( Amer) TNP 01/07/18 16:45 Est GFR (Non-Af Amer) TNP 01/07/18 16:45 BUN/Creatinine Ratio 24.4 01/07/18 16:45 Glucose 103 mg/dL (70-105) 01/07/18 16:45 Hemoglobin A1c % 5.3 % (4.0-6.0) 01/07/18 16:45 Calcium 9.3 mg/dL (8.6-10.3) 01/07/18 16:45 Total Bilirubin 0.3 mg/dL (0.3-1.0) 01/07/18 16:45 AST 16 U/L (13-39) 01/07/18 16:45 ALT 15 U/L (7-52) 01/07/18 16:45 Alkaline Phosphatase 68 U/L (34-104) 01/07/18 16:45 Total Protein 6.6 gm/dL (6.0-8.3) 01/07/18 16:45 Albumin 3.8 gm/dL (3.7-5.3) 01/07/18 16:45 Globulin 2.8 gm/dL 01/07/18 16:45 Albumin/Globulin Ratio 1.4 (1.0-1.8) 01/07/18 16:45 Triglycerides 143 mg/dL (<150) 01/07/18 16:45 Cholesterol 218 mg/dL (<200) H 01/07/18 16:45 LDL Cholesterol Direct 137 mg/dL (75-193) 01/07/18 16:45 HDL Cholesterol 55 mg/dL (23-92) 01/07/18 16:45 TSH 1.02 uIU/ml (0.34-5.60) 01/07/18 16:45 RPR NONREACTIVE (NONREACTIVE) 01/07/18 16:45 - Physical Exam Vitals and I&O: Vital Signs Temp 98.8 F 01/13/18 06:16 Pulse 72 01/13/18 06:16 Resp 20 01/13/18 06:16 BP 123/67 01/13/18 06:16 Pulse Ox 94 01/13/18 06:16 Intake & Output 01/12/1818 01/13/18 18:59 06:59 18:59 Intake Total 800 120 Balance 800 120 Intake: Oral 800 120 Other: # Voids 3 3 # Bowel Movements 1 0 Active Medications: Current Medications Acetaminophen (Tylenol) 650 mg PO Q4H PRN PRN Reason: MILD PAIN (LEVEL 1-3) Stop: 03/08/18 21:54 Docusate Sodium (Colace) 100 mg PO BID [facility] Stop: 03/09/18 08:59 Last Admin: 01/12/18 17:33 Dose: 100 mg Donepezil HCl (Aricept) 5 mg PO HS [facility] Stop: 03/09/18 20:59 Last Admin: 01/12/18 20:52 Dose: 5 mg Escitalopram Oxalate (Lexapro) 10 mg PO DAILY [facility]; Protocol Stop: 03/09/18 08:59 Last Admin: 01/12/18 08:39 Dose: 10 mg Haloperidol (Haldol) 0.5 mg PO HS [facility]; Protocol Stop: 03/09/18 20:59 Last Admin: 01/12/18 20:51 Dose: 0.5 mg Lactobacillus Rhamnosus (Culturelle 15b) 1 each PO DAILY [facility] Stop: 03/09/18 08:59 Last Admin: 01/12/18 08:39 Dose: 1 each Lorazepam (Ativan) 0.5 mg PO Q4HR PRN; Protocol PRN Reason: Anxiety Stop: 03/08/18 21:54 Last Admin: 01/10/18 20:20 Dose: 0.5 mg Magnesium Hydroxide (Milk Of Magnesia) 30 ml PO DAILY PRN PRN Reason: Constipation Stop: 03/08/18 21:54 Memantine (Namenda) 10 mg PO DAILY [facility] Stop: 03/09/18 08:59 Last Admin: 01/12/18 08:39 Dose: 10 mg Promethazine HCl/Dextromethorphan (Phenergan Dm 6.25/15mg-5 Ml) 5 ml PO Q8H PRN PRN Reason: Cough Stop: 03/08/18 21:54 Tramadol HCl (Ultram) 50 mg PO BID PRN PRN Reason: Pain (Severe) Stop: 03/08/18 21:54 Zolpidem Tartrate (Ambien) 5 mg PO HS PRN PRN Reason: Insomnia Stop: 03/08/18 21:54 Last Admin: 01/12/18 20:51 Dose: 5 mg General: No acute distress HEENT: Atraumatic, PERRLA, EOMI Neck: Supple Cardiovascular: Regular rate, Normal S1, Normal S2 Lungs: Clear to auscultation Abdomen: Bowel sounds Extremities: no Clubbing, no Cyanosis, no Edema - Procedures Procedures: Procedures Procedure Code Date GROUP PSYCHOTHERAPY 43573 10/12/15 GROUP PSYCHOTHERAPY GZHZZZZ 10/12/15 GROUP PSYCHOTHERAPY 50271 03/15/15 GROUP PSYCHOTHERAPY GZHZZZZ 03/15/15 OTHER GROUP THERAPY 94.44 12/18/14 Assessment/Plan - Assessment Assessment: psychosis depression schizophrenia dementia - Plan Plan: continue current medications.
[2018-01-13] MEDS: Multivitamin w/ Minerals Tab PO SCH (08:22)
[2018-01-13] MEDS: Lactobacillus Rhamnosus GG 15 Billion CFU CAP.SPRINK PO SCH (08:22)
--- NOTE | 2018-01-14 01:25 | Progress Notes ---
DATE: 01/13/2018 PSYCHIATRIC PROGRESS NOTE SUBJECTIVE: Staff was spoken to. The patient is interviewed. Mood is noted to be depressed. Affect is constricted. The patient is isolative and withdrawn. The patient has paranoid delusions. Coping skills are noted to be still poor. The patient is hugging with doll and he is getting easily upset. The patient's coping skills are noted to be very poor. The patient has been stating that people are out there to katie her property. ASSESSMENT: The patient is still grossly psychotic. PLAN: To continue the patient with the supportive therapy and followup. JOB# [id number]
--- NOTE | 2018-01-14 08:13 | General Progress Note ---
Subjective - Review of Systems Service Date: 01/14/18 Subjective: Patient is awake, alert, no acute distress T 98.2 P 77 BP 120/66 R 19 Objective - Results Result Diagrams: 01/07/18 16:45 01/07/18 16:45 Recent Labs: Laboratory Last Values WBC 7.4 Th/cmm (4.8-10.8) 01/07/18 16:45 RBC 4.80 Mil/cmm (3.80-5.20) 01/07/18 16:45 Hgb 13.7 gm/dL (12-16) 01/07/18 16:45 Hct 41.1 % (41.0-60) 01/07/18 16:45 MCV 85.8 fl (81-100) 01/07/18 16:45 MCH 28.5 pg (27.0-31.0) 01/07/18 16:45 MCHC Differential 33.2 pg (28.0-36.0) 01/07/18 16:45 RDW 14.1 % (11.5-20.0) 01/07/18 16:45 Plt Count 248 Th/cmm (150-400) 01/07/18 16:45 MPV 8.0 fl 01/07/18 16:45 Neutrophils % 64.8 % (40.0-80.0) 01/07/18 16:45 Lymphocytes % 24.5 % (20.0-50.0) 01/07/18 16:45 Monocytes % 9.4 % (2.0-10.0) 01/07/18 16:45 Eosinophils % 0.5 % (0.0-5.0) 01/07/18 16:45 Basophils % 0.8 % (0.0-2.0) 01/07/18 16:45 Sodium 138 mEq/L (136-145) 01/07/18 16:45 Potassium 4.0 mEq/L (3.5-5.1) 01/07/18 16:45 Chloride 107 mEq/L (98-107) 01/07/18 16:45 Carbon Dioxide 24.0 mEq/L (21.0-31.0) 01/07/18 16:45 Anion Gap 11.0 (7.0-16.0) 01/07/18 16:45 BUN 22 mg/dL (7-25) 01/07/18 16:45 Creatinine 0.9 mg/dL (0.6-1.2) 01/07/18 16:45 Est GFR ( Amer) TNP 01/07/18 16:45 Est GFR (Non-Af Amer) TNP 01/07/18 16:45 BUN/Creatinine Ratio 24.4 01/07/18 16:45 Glucose 103 mg/dL (70-105) 01/07/18 16:45 Hemoglobin A1c % 5.3 % (4.0-6.0) 01/07/18 16:45 Calcium 9.3 mg/dL (8.6-10.3) 01/07/18 16:45 Total Bilirubin 0.3 mg/dL (0.3-1.0) 01/07/18 16:45 AST 16 U/L (13-39) 01/07/18 16:45 ALT 15 U/L (7-52) 01/07/18 16:45 Alkaline Phosphatase 68 U/L (34-104) 01/07/18 16:45 Total Protein 6.6 gm/dL (6.0-8.3) 01/07/18 16:45 Albumin 3.8 gm/dL (3.7-5.3) 01/07/18 16:45 Globulin 2.8 gm/dL 01/07/18 16:45 Albumin/Globulin Ratio 1.4 (1.0-1.8) 01/07/18 16:45 Triglycerides 143 mg/dL (<150) 01/07/18 16:45 Cholesterol 218 mg/dL (<200) H 01/07/18 16:45 LDL Cholesterol Direct 137 mg/dL (75-193) 01/07/18 16:45 HDL Cholesterol 55 mg/dL (23-92) 01/07/18 16:45 TSH 1.02 uIU/ml (0.34-5.60) 01/07/18 16:45 RPR NONREACTIVE (NONREACTIVE) 01/07/18 16:45 - Physical Exam Vitals and I&O: Vital Signs Temp 98.2 F 01/14/18 06:45 Pulse 77 01/14/18 06:45 Resp 19 01/14/18 06:45 BP 120/66 01/14/18 06:45 Pulse Ox 96 01/14/18 06:45 Intake & Output 01/13/18 01/14/18 01/14/18 18:59 06:59 18:59 Intake Total 120 Balance 120 Intake: Oral 120 Other: # Voids 2 Active Medications: Current Medications Acetaminophen (Tylenol) 650 mg PO Q4H PRN PRN Reason: MILD PAIN (LEVEL 1-3) Stop: 03/08/18 21:54 Docusate Sodium (Colace) 100 mg PO BID [facility] Stop: 03/09/18 08:59 Last Admin: 01/13/18 16:59 Dose: 100 mg Donepezil HCl (Aricept) 5 mg PO HS SHAYNA Stop: 03/09/18 20:59 Last Admin: 01/13/18 20:58 Dose: 5 mg Escitalopram Oxalate (Lexapro) 10 mg PO DAILY SHAYNA; Protocol Stop: 03/09/18 08:59 Last Admin: 01/13/18 08:22 Dose: 10 mg Haloperidol (Haldol) 0.5 mg PO HS SHAYNA; Protocol Stop: 03/09/18 20:59 Last Admin: 01/13/18 20:58 Dose: 0.5 mg Lactobacillus Rhamnosus (Culturelle 15b) 1 each PO DAILY SHAYNA Stop: 03/09/18 08:59 Last Admin: 01/13/18 08:22 Dose: 1 each Lorazepam (Ativan) 0.5 mg PO Q4HR PRN; Protocol PRN Reason: Anxiety Stop: 03/08/18 21:54 Last Admin: 01/10/18 20:20 Dose: 0.5 mg Magnesium Hydroxide (Milk Of Magnesia) 30 ml PO DAILY PRN PRN Reason: Constipation Stop: 03/08/18 21:54 Memantine (Namenda) 10 mg PO DAILY SHAYNA Stop: 03/09/18 08:59 Last Admin: 01/13/18 08:22 Dose: 10 mg Promethazine HCl/Dextromethorphan (Phenergan Dm 6.25/15mg-5 Ml) 5 ml PO Q8H PRN PRN Reason: Cough Stop: 03/08/18 21:54 Tramadol HCl (Ultram) 50 mg PO BID PRN PRN Reason: Pain (Severe) Stop: 03/08/18 21:54 Zolpidem Tartrate (Ambien) 5 mg PO HS PRN PRN Reason: Insomnia Stop: 03/08/18 21:54 Last Admin: 01/12/18 20:51 Dose: 5 mg General: No acute distress HEENT: Atraumatic, PERRLA, EOMI Neck: Supple Cardiovascular: Regular rate, Normal S1, Normal S2 Lungs: Clear to auscultation Abdomen: Bowel sounds Extremities: no Clubbing, no Cyanosis, no Edema - Procedures Procedures: Procedures Procedure Code Date GROUP PSYCHOTHERAPY 26325 10/12/15 GROUP PSYCHOTHERAPY GZHZZZZ 10/12/15 GROUP PSYCHOTHERAPY 60273 03/15/15 GROUP PSYCHOTHERAPY GZHZZZZ 03/15/15 OTHER GROUP THERAPY 94.44 12/18/14 Assessment/Plan - Assessment Assessment: psychosis depression schizophrenia dementia - Plan Plan: continue current medications.
[2018-01-14] MEDS: Multivitamin w/ Minerals Tab PO SCH (09:34)
[2018-01-14] MEDS: Lactobacillus Rhamnosus GG 15 Billion CFU CAP.SPRINK PO SCH (09:34)
--- NOTE | 2018-01-14 22:12 | Progress Notes ---
DATE: 01/14/2018 SUBJECTIVE: Staff was spoken to. The patient is interviewed. Mood is noted to be irritable. Affect is constricted. Continues to be paranoid. Insight and judgment are noted to be very much impaired. Impulse control seems to be limited. The patient has been hiding today and does not want to get into the groups. ASSESSMENT: The patient is still very paranoid. PLAN: To continue the patient with the supportive therapy and followup. JOB# [id number]
--- NOTE | 2018-01-15 08:17 | General Progress Note ---
Subjective - Review of Systems Service Date: 01/15/18 Subjective: Patient is awake, alert, no acute distress T 97.9 P 79 BP 110/63 R 20 Objective - Results Result Diagrams: 01/07/18 16:45 01/07/18 16:45 Recent Labs: Laboratory Last Values WBC 7.4 Th/cmm (4.8-10.8) 01/07/18 16:45 RBC 4.80 Mil/cmm (3.80-5.20) 01/07/18 16:45 Hgb 13.7 gm/dL (12-16) 01/07/18 16:45 Hct 41.1 % (41.0-60) 01/07/18 16:45 MCV 85.8 fl (81-100) 01/07/18 16:45 MCH 28.5 pg (27.0-31.0) 01/07/18 16:45 MCHC Differential 33.2 pg (28.0-36.0) 01/07/18 16:45 RDW 14.1 % (11.5-20.0) 01/07/18 16:45 Plt Count 248 Th/cmm (150-400) 01/07/18 16:45 MPV 8.0 fl 01/07/18 16:45 Neutrophils % 64.8 % (40.0-80.0) 01/07/18 16:45 Lymphocytes % 24.5 % (20.0-50.0) 01/07/18 16:45 Monocytes % 9.4 % (2.0-10.0) 01/07/18 16:45 Eosinophils % 0.5 % (0.0-5.0) 01/07/18 16:45 Basophils % 0.8 % (0.0-2.0) 01/07/18 16:45 Sodium 138 mEq/L (136-145) 01/07/18 16:45 Potassium 4.0 mEq/L (3.5-5.1) 01/07/18 16:45 Chloride 107 mEq/L (98-107) 01/07/18 16:45 Carbon Dioxide 24.0 mEq/L (21.0-31.0) 01/07/18 16:45 Anion Gap 11.0 (7.0-16.0) 01/07/18 16:45 BUN 22 mg/dL (7-25) 01/07/18 16:45 Creatinine 0.9 mg/dL (0.6-1.2) 01/07/18 16:45 Est GFR ( Amer) TNP 01/07/18 16:45 Est GFR (Non-Af Amer) TNP 01/07/18 16:45 BUN/Creatinine Ratio 24.4 01/07/18 16:45 Glucose 103 mg/dL (70-105) 01/07/18 16:45 Hemoglobin A1c % 5.3 % (4.0-6.0) 01/07/18 16:45 Calcium 9.3 mg/dL (8.6-10.3) 01/07/18 16:45 Total Bilirubin 0.3 mg/dL (0.3-1.0) 01/07/18 16:45 AST 16 U/L (13-39) 01/07/18 16:45 ALT 15 U/L (7-52) 01/07/18 16:45 Alkaline Phosphatase 68 U/L (34-104) 01/07/18 16:45 Total Protein 6.6 gm/dL (6.0-8.3) 01/07/18 16:45 Albumin 3.8 gm/dL (3.7-5.3) 01/07/18 16:45 Globulin 2.8 gm/dL 01/07/18 16:45 Albumin/Globulin Ratio 1.4 (1.0-1.8) 01/07/18 16:45 Triglycerides 143 mg/dL (<150) 01/07/18 16:45 Cholesterol 218 mg/dL (<200) H 01/07/18 16:45 LDL Cholesterol Direct 137 mg/dL (75-193) 01/07/18 16:45 HDL Cholesterol 55 mg/dL (23-92) 01/07/18 16:45 TSH 1.02 uIU/ml (0.34-5.60) 01/07/18 16:45 RPR NONREACTIVE (NONREACTIVE) 01/07/18 16:45 - Physical Exam Vitals and I&O: Vital Signs Temp 97.9 F 01/14/18 14:00 Pulse 79 01/14/18 14:00 Resp 19 01/14/18 20:00 BP 110/63 01/14/18 14:00 Pulse Ox 98 01/14/18 14:00 Intake & Output 01/14/1818 18 18:59 06:59 18:59 Intake Total 960 Balance 960 Intake: Oral 960 Other: # Voids 3 # Bowel Movements 1 Active Medications: Current Medications Acetaminophen (Tylenol) 650 mg PO Q4H PRN PRN Reason: MILD PAIN (LEVEL 1-3) Stop: 03/08/18 21:54 Docusate Sodium (Colace) 100 mg PO BID [facility] Stop: 03/09/18 08:59 Last Admin: 01/14/18 18:16 Dose: Not Given Donepezil HCl (Aricept) 5 mg PO HS [facility] Stop: 03/09/18 20:59 Last Admin: 01/14/18 21:13 Dose: Not Given Escitalopram Oxalate (Lexapro) 10 mg PO DAILY [facility]; Protocol Stop: 03/09/18 08:59 Last Admin: 01/14/18 09:34 Dose: 10 mg Haloperidol (Haldol) 0.5 mg PO HS [facility]; Protocol Stop: 03/09/18 20:59 Last Admin: 01/14/18 21:11 Dose: Not Given Lactobacillus Rhamnosus (Culturelle 15b) 1 each PO DAILY [facility] Stop: 03/09/18 08:59 Last Admin: 01/14/18 09:34 Dose: 1 each Lorazepam (Ativan) 0.5 mg PO Q4HR PRN; Protocol PRN Reason: Anxiety Stop: 03/08/18 21:54 Last Admin: 01/10/18 20:20 Dose: 0.5 mg Magnesium Hydroxide (Milk Of Magnesia) 30 ml PO DAILY PRN PRN Reason: Constipation Stop: 03/08/18 21:54 Memantine (Namenda) 10 mg PO DAILY [facility] Stop: 03/09/18 08:59 Last Admin: 01/14/18 09:34 Dose: 10 mg Promethazine HCl/Dextromethorphan (Phenergan Dm 6.25/15mg-5 Ml) 5 ml PO Q8H PRN PRN Reason: Cough Stop: 03/08/18 21:54 Tramadol HCl (Ultram) 50 mg PO BID PRN PRN Reason: Pain (Severe) Stop: 03/08/18 21:54 Zolpidem Tartrate (Ambien) 5 mg PO HS PRN PRN Reason: Insomnia Stop: 03/08/18 21:54 Last Admin: 01/12/18 20:51 Dose: 5 mg General: No acute distress HEENT: Atraumatic, PERRLA, EOMI Neck: Supple Cardiovascular: Regular rate, Normal S1, Normal S2 Lungs: Clear to auscultation Abdomen: Bowel sounds Extremities: no Clubbing, no Cyanosis, no Edema - Procedures Procedures: Procedures Procedure Code Date GROUP PSYCHOTHERAPY 16479 10/12/15 GROUP PSYCHOTHERAPY GZHZZZZ 10/12/15 GROUP PSYCHOTHERAPY 83330 03/15/15 GROUP PSYCHOTHERAPY GZHZZZZ 03/15/15 OTHER GROUP THERAPY 94.44 12/18/14 Assessment/Plan - Assessment Assessment: psychosis depression schizophrenia dementia - Plan Plan: continue current medications. Nutritional Asmnt/Malnutr-PDOC - Dietary Evaluation Malnutrition Findings (Please click <Entered> for more info): Nutritional Asmnt/Malnutrition Start: 01/14/18 13: 48 Text: Status: Complete Freq: Protocol: Document 01/14/18 13:48 LCALANG (Rec: 01/14/18 13:51 [email or web address] [email or web address]) Nutritional Asmnt/Malnutrition Patient General Information Nutritional Screening Low Risk Diagnosis psychosis NOS Pertinent Medical Hx/Surgical Hx dementia, psychosis, depression,s chizophrenia Subjective Information Pt seen sleeping in bed at time of visit. Per EMR, PO intake 50-75%, meeting estimated nutritional needs. Current Diet Order/ Nutrition Support regular Pertinent Medications culturelle, colace Pertinent Labs 01/07 cholesterol 218 Nutritional Hx/Data Height 1.55 m Height (Calculated Centimeters) 154.9 Current Weight (lbs) 52.163 kg Weight (Calculated Kilograms) 52.2 Weight (Calculated Grams) 70951.1 [place] Body Weight 105 Body Mass Index (BMI) 21.7 Weight Status Approriate GI Symptoms GI Symptoms None Last BM 01/12 Difficult in: None Skin Integrity/Comment: intact Current %PO Fair (50-74%) Estimated Nutritional Goals BEE in Kcals: Using Current wt Calories/Kcals/Kg 25-30 Kcals Calculated 0793-0095 Protein: Using Current wt Protein g/k Protein Calculated 52 Fluid: ml 1300-1560ml (1ml/kcal) Nutritional Problem No current Nutrition Prob Problem N/A Intervention/Recommendation Comments 1. Continue with regular diet as ordered. 2. Monitor PO intake, wt, labs and skin integrity 3. F/U as low risk in 7 days, 01/21 Expected Outcomes/Goals Expected Outcomes/Goals 1. PO intake to meet at least 75% of nutritional needs. 2. Wt stability, skin to remain intact, labs to approach WNL.
[2018-01-15] MEDS: Lactobacillus Rhamnosus GG 15 Billion CFU CAP.SPRINK PO SCH (09:24)
[2018-01-15] MEDS: Multivitamin w/ Minerals Tab PO SCH (09:24)
--- NOTE | 2018-01-16 04:14 | Progress Notes ---
DATE: 01/15/2018 SUBJECTIVE: Staff was spoken to. The patient is interviewed. Mood is noted to be irritable. Affect is constricted. The patient is very paranoid and the patient is stating that on one hand, the medications are making her to [place] and to be still sedated in the morning, but at the same time, the patient is still stating that the people are out there to get her money and her is trying to kill her with the medication that he is breathing at night time. ASSESSMENT: The patient is still psychotic and demented. PLAN: To continue the patient with the supportive therapy and followup. JOB# [id number]
--- NOTE | 2018-01-16 06:06 | General Progress Note ---
Subjective - Review of Systems Service Date: 01/16/18 Subjective: Patient is awake, alert, no acute distress T 97.8 P 99 BP 133/73 R 20 Objective - Results Result Diagrams: 01/07/18 16:45 01/07/18 16:45 Recent Labs: Laboratory Last Values WBC 7.4 Th/cmm (4.8-10.8) 01/07/18 16:45 RBC 4.80 Mil/cmm (3.80-5.20) 01/07/18 16:45 Hgb 13.7 gm/dL (12-16) 01/07/18 16:45 Hct 41.1 % (41.0-60) 01/07/18 16:45 MCV 85.8 fl (81-100) 01/07/18 16:45 MCH 28.5 pg (27.0-31.0) 01/07/18 16:45 MCHC Differential 33.2 pg (28.0-36.0) 01/07/18 16:45 RDW 14.1 % (11.5-20.0) 01/07/18 16:45 Plt Count 248 Th/cmm (150-400) 01/07/18 16:45 MPV 8.0 fl 01/07/18 16:45 Neutrophils % 64.8 % (40.0-80.0) 01/07/18 16:45 Lymphocytes % 24.5 % (20.0-50.0) 01/07/18 16:45 Monocytes % 9.4 % (2.0-10.0) 01/07/18 16:45 Eosinophils % 0.5 % (0.0-5.0) 01/07/18 16:45 Basophils % 0.8 % (0.0-2.0) 01/07/18 16:45 Sodium 138 mEq/L (136-145) 01/07/18 16:45 Potassium 4.0 mEq/L (3.5-5.1) 01/07/18 16:45 Chloride 107 mEq/L (98-107) 01/07/18 16:45 Carbon Dioxide 24.0 mEq/L (21.0-31.0) 01/07/18 16:45 Anion Gap 11.0 (7.0-16.0) 01/07/18 16:45 BUN 22 mg/dL (7-25) 01/07/18 16:45 Creatinine 0.9 mg/dL (0.6-1.2) 01/07/18 16:45 Est GFR ( Amer) TNP 01/07/18 16:45 Est GFR (Non-Af Amer) TNP 01/07/18 16:45 BUN/Creatinine Ratio 24.4 01/07/18 16:45 Glucose 103 mg/dL (70-105) 01/07/18 16:45 Hemoglobin A1c % 5.3 % (4.0-6.0) 01/07/18 16:45 Calcium 9.3 mg/dL (8.6-10.3) 01/07/18 16:45 Total Bilirubin 0.3 mg/dL (0.3-1.0) 01/07/18 16:45 AST 16 U/L (13-39) 01/07/18 16:45 ALT 15 U/L (7-52) 01/07/18 16:45 Alkaline Phosphatase 68 U/L (34-104) 01/07/18 16:45 Total Protein 6.6 gm/dL (6.0-8.3) 01/07/18 16:45 Albumin 3.8 gm/dL (3.7-5.3) 01/07/18 16:45 Globulin 2.8 gm/dL 01/07/18 16:45 Albumin/Globulin Ratio 1.4 (1.0-1.8) 01/07/18 16:45 Triglycerides 143 mg/dL (<150) 01/07/18 16:45 Cholesterol 218 mg/dL (<200) H 01/07/18 16:45 LDL Cholesterol Direct 137 mg/dL (75-193) 01/07/18 16:45 HDL Cholesterol 55 mg/dL (23-92) 01/07/18 16:45 TSH 1.02 uIU/ml (0.34-5.60) 01/07/18 16:45 RPR NONREACTIVE (NONREACTIVE) 01/07/18 16:45 - Physical Exam Vitals and I&O: Vital Signs Temp 97.8 F 01/15/18 21:05 Pulse 99 01/15/18 21:05 Resp 20 01/15/18 21:05 BP 133/73 01/15/18 21:05 Pulse Ox 97 01/15/18 21:05 Intake & Output 01/15/18 01/15/18 01/16/18 06:59 18:59 06:59 Intake Total 1200 240 Balance 1200 240 Intake: Oral 1200 240 Other: # Voids 1 Active Medications: Current Medications Acetaminophen (Tylenol) 650 mg PO Q4H PRN PRN Reason: MILD PAIN (LEVEL 1-3) Stop: 03/08/18 21:54 Docusate Sodium (Colace) 100 mg PO BID [facility] Stop: 03/09/18 08:59 Last Admin: 01/15/18 16:06 Dose: 100 mg Donepezil HCl (Aricept) 5 mg PO HS [facility] Stop: 03/09/18 20:59 Last Admin: 01/15/18 20:33 Dose: 5 mg Escitalopram Oxalate (Lexapro) 10 mg PO DAILY [facility]; Protocol Stop: 03/09/18 08:59 Last Admin: 01/15/18 09:24 Dose: 10 mg Haloperidol (Haldol) 0.5 mg PO HS [facility]; Protocol Stop: 03/09/18 20:59 Last Admin: 01/15/18 20:34 Dose: 0.5 mg Lactobacillus Rhamnosus (Culturelle 15b) 1 each PO DAILY [facility] Stop: 03/09/18 08:59 Last Admin: 01/15/18 09:24 Dose: 1 each Lorazepam (Ativan) 0.5 mg PO Q4HR PRN; Protocol PRN Reason: Anxiety Stop: 03/08/18 21:54 Last Admin: 01/15/18 13:24 Dose: 0.5 mg Magnesium Hydroxide (Milk Of Magnesia) 30 ml PO DAILY PRN PRN Reason: Constipation Stop: 03/08/18 21:54 Memantine (Namenda) 10 mg PO DAILY [facility] Stop: 03/09/18 08:59 Last Admin: 01/15/18 09:24 Dose: 10 mg Promethazine HCl/Dextromethorphan (Phenergan Dm 6.25/15mg-5 Ml) 5 ml PO Q8H PRN PRN Reason: Cough Stop: 03/08/18 21:54 Tramadol HCl (Ultram) 50 mg PO BID PRN PRN Reason: Pain (Severe) Stop: 03/08/18 21:54 Zolpidem Tartrate (Ambien) 5 mg PO HS PRN PRN Reason: Insomnia Stop: 03/08/18 21:54 Last Admin: 01/12/18 20:51 Dose: 5 mg General: No acute distress HEENT: Atraumatic, PERRLA, EOMI Neck: Supple Cardiovascular: Regular rate, Normal S1, Normal S2 Lungs: Clear to auscultation Abdomen: Bowel sounds Extremities: no Clubbing, no Cyanosis, no Edema - Procedures Procedures: Procedures Procedure Code Date GROUP PSYCHOTHERAPY 70265 10/12/15 GROUP PSYCHOTHERAPY GZHZZZZ 10/12/15 GROUP PSYCHOTHERAPY 30500 03/15/15 GROUP PSYCHOTHERAPY GZHZZZZ 03/15/15 OTHER GROUP THERAPY 94.44 12/18/14 Assessment/Plan - Assessment Assessment: psychosis depression schizophrenia dementia - Plan Plan: continue current medications. Nutritional Asmnt/Malnutr-PDOC - Dietary Evaluation Malnutrition Findings (Please click <Entered> for more info): Nutritional Asmnt/Malnutrition Start: 01/14/18 13: 48 Text: Status: Complete Freq: Protocol: Document 01/14/18 13:48 LCHENG (Rec: 01/14/18 13:51 LCALANG [email or web address]) Nutritional Asmnt/Malnutrition Patient General Information Nutritional Screening Low Risk Diagnosis psychosis NOS Pertinent Medical Hx/Surgical Hx dementia, psychosis, depression,s chizophrenia Subjective Information Pt seen sleeping in bed at time of visit. Per EMR, PO intake 50-75%, meeting estimated nutritional needs. Current Diet Order/ Nutrition Support regular Pertinent Medications culturelle, colace Pertinent Labs 01/07 cholesterol 218 Nutritional Hx/Data Height 1.55 m Height (Calculated Centimeters) 154.9 Current Weight (lbs) 52.163 kg Weight (Calculated Kilograms) 52.2 Weight (Calculated Grams) 00960.1 [place] Body Weight 105 Body Mass Index (BMI) 21.7 Weight Status Approriate GI Symptoms GI Symptoms None Last BM 01/12 Difficult in: None Skin Integrity/Comment: intact Current %PO Fair (50-74%) Estimated Nutritional Goals BEE in Kcals: Using Current wt Calories/Kcals/Kg 25-30 Kcals Calculated 2033-7982 Protein: Using Current wt Protein g/k Protein Calculated 52 Fluid: ml 1300-1560ml (1ml/kcal) Nutritional Problem No current Nutrition Prob Problem N/A Intervention/Recommendation Comments 1. Continue with regular diet as ordered. 2. Monitor PO intake, wt, labs and skin integrity 3. F/U as low risk in 7 days, 01/21 Expected Outcomes/Goals Expected Outcomes/Goals 1. PO intake to meet at least 75% of nutritional needs. 2. Wt stability, skin to remain intact, labs to approach WNL.
[2018-01-16] MEDS: Lactobacillus Rhamnosus GG 15 Billion CFU CAP.SPRINK PO SCH (08:54)
[2018-01-16] MEDS: Multivitamin w/ Minerals Tab PO SCH (08:54)
--- NOTE | 2018-01-16 23:48 | Progress Notes ---
DATE: 01/16/2018 PSYCHIATRIC PROGRESS NOTE SUBJECTIVE: Staff was spoken to. The patient is interviewed. Mood is noted to be irritable. Affect is constricted. She continues to be very paranoid, isolative and withdrawn. The patient has been hanging on to her doll and is stating that she is scared that her is going to be coming and trying to poison her with medications. The patient has been currently on haloperidol 0.5 mg at bedtime, plan to increase it to 1 mg at bedtime, and encourage the patient to verbalize the concerns rather than to act out. The patient continues to be psychotic at this time and is not able to contract for safety. ASSESSMENT: The patient is still grossly psychotic. PLAN: To continue the patient with supportive therapy. I encouraged the patient to verbalize the concerns rather than to act out. JOB# [id number]
--- NOTE | 2018-01-17 05:40 | General Progress Note ---
Subjective - Review of Systems Service Date: 01/17/18 Subjective: Patient is awake, alert, no acute distress T 99 P 71 BP 109/63 R 19 Objective - Results Result Diagrams: 01/07/18 16:45 01/07/18 16:45 Recent Labs: Laboratory Last Values WBC 7.4 Th/cmm (4.8-10.8) 01/07/18 16:45 RBC 4.80 Mil/cmm (3.80-5.20) 01/07/18 16:45 Hgb 13.7 gm/dL (12-16) 01/07/18 16:45 Hct 41.1 % (41.0-60) 01/07/18 16:45 MCV 85.8 fl (81-100) 01/07/18 16:45 MCH 28.5 pg (27.0-31.0) 01/07/18 16:45 MCHC Differential 33.2 pg (28.0-36.0) 01/07/18 16:45 RDW 14.1 % (11.5-20.0) 01/07/18 16:45 Plt Count 248 Th/cmm (150-400) 01/07/18 16:45 MPV 8.0 fl 01/07/18 16:45 Neutrophils % 64.8 % (40.0-80.0) 01/07/18 16:45 Lymphocytes % 24.5 % (20.0-50.0) 01/07/18 16:45 Monocytes % 9.4 % (2.0-10.0) 01/07/18 16:45 Eosinophils % 0.5 % (0.0-5.0) 01/07/18 16:45 Basophils % 0.8 % (0.0-2.0) 01/07/18 16:45 Sodium 138 mEq/L (136-145) 01/07/18 16:45 Potassium 4.0 mEq/L (3.5-5.1) 01/07/18 16:45 Chloride 107 mEq/L (98-107) 01/07/18 16:45 Carbon Dioxide 24.0 mEq/L (21.0-31.0) 01/07/18 16:45 Anion Gap 11.0 (7.0-16.0) 01/07/18 16:45 BUN 22 mg/dL (7-25) 01/07/18 16:45 Creatinine 0.9 mg/dL (0.6-1.2) 01/07/18 16:45 Est GFR ( Amer) TNP 01/07/18 16:45 Est GFR (Non-Af Amer) TNP 01/07/18 16:45 BUN/Creatinine Ratio 24.4 01/07/18 16:45 Glucose 103 mg/dL (70-105) 01/07/18 16:45 Hemoglobin A1c % 5.3 % (4.0-6.0) 01/07/18 16:45 Calcium 9.3 mg/dL (8.6-10.3) 01/07/18 16:45 Total Bilirubin 0.3 mg/dL (0.3-1.0) 01/07/18 16:45 AST 16 U/L (13-39) 01/07/18 16:45 ALT 15 U/L (7-52) 01/07/18 16:45 Alkaline Phosphatase 68 U/L (34-104) 01/07/18 16:45 Total Protein 6.6 gm/dL (6.0-8.3) 01/07/18 16:45 Albumin 3.8 gm/dL (3.7-5.3) 01/07/18 16:45 Globulin 2.8 gm/dL 01/07/18 16:45 Albumin/Globulin Ratio 1.4 (1.0-1.8) 01/07/18 16:45 Triglycerides 143 mg/dL (<150) 01/07/18 16:45 Cholesterol 218 mg/dL (<200) H 01/07/18 16:45 LDL Cholesterol Direct 137 mg/dL (75-193) 01/07/18 16:45 HDL Cholesterol 55 mg/dL (23-92) 01/07/18 16:45 TSH 1.02 uIU/ml (0.34-5.60) 01/07/18 16:45 RPR NONREACTIVE (NONREACTIVE) 01/07/18 16:45 - Physical Exam Vitals and I&O: Vital Signs Temp 99 F 01/16/18 20:00 Pulse 71 01/16/18 20:00 Resp 19 01/16/18 20:00 BP 109/63 01/16/18 20:00 Pulse Ox 95 01/16/18 20:00 Intake & Output 01/16/18 01/16/1818 06:59 18:59 06:59 Intake Total 240 800 Balance 240 800 Intake: Oral 240 800 Other: # Voids 3 3 # Bowel Movements 0 1 Active Medications: Current Medications Acetaminophen (Tylenol) 650 mg PO Q4H PRN PRN Reason: MILD PAIN (LEVEL 1-3) Stop: 03/08/18 21:54 Docusate Sodium (Colace) 100 mg PO BID [facility] Stop: 03/09/18 08:59 Last Admin: 01/16/18 16:50 Dose: 100 mg Donepezil HCl (Aricept) 5 mg PO HS [facility] Stop: 03/09/18 20:59 Last Admin: 01/16/18 20:28 Dose: 5 mg Escitalopram Oxalate (Lexapro) 10 mg PO DAILY [facility]; Protocol Stop: 03/09/18 08:59 Last Admin: 01/16/18 08:54 Dose: 10 mg Haloperidol (Haldol) 1 mg PO HS [facility]; Protocol Stop: 03/17/18 20:59 Last Admin: 01/16/18 20:28 Dose: 1 mg Lactobacillus Rhamnosus (Culturelle 15b) 1 each PO DAILY [facility] Stop: 03/09/18 08:59 Last Admin: 01/16/18 08:54 Dose: 1 each Lorazepam (Ativan) 0.5 mg PO Q4HR PRN; Protocol PRN Reason: Anxiety Stop: 03/08/18 21:54 Last Admin: 01/15/18 13:24 Dose: 0.5 mg Magnesium Hydroxide (Milk Of Magnesia) 30 ml PO DAILY PRN PRN Reason: Constipation Stop: 03/08/18 21:54 Memantine (Namenda) 10 mg PO DAILY [facility] Stop: 03/09/18 08:59 Last Admin: 01/16/18 08:54 Dose: 10 mg Promethazine HCl/Dextromethorphan (Phenergan Dm 6.25/15mg-5 Ml) 5 ml PO Q8H PRN PRN Reason: Cough Stop: 03/08/18 21:54 Tramadol HCl (Ultram) 50 mg PO BID PRN PRN Reason: Pain (Severe) Stop: 03/08/18 21:54 Zolpidem Tartrate (Ambien) 5 mg PO HS PRN PRN Reason: Insomnia Stop: 10/15/18 21:54 Last Admin: 01/16/18 23:04 Dose: 5 mg General: No acute distress HEENT: Atraumatic, PERRLA, EOMI Neck: Supple Cardiovascular: Regular rate, Normal S1, Normal S2 Lungs: Clear to auscultation Abdomen: Bowel sounds Extremities: no Clubbing, no Cyanosis, no Edema - Procedures Procedures: Procedures Procedure Code Date GROUP PSYCHOTHERAPY 11034 10/12/15 GROUP PSYCHOTHERAPY GZHZZZZ 10/12/15 GROUP PSYCHOTHERAPY 51341 03/15/15 GROUP PSYCHOTHERAPY GZHZZZZ 03/15/15 OTHER GROUP THERAPY 94.44 12/18/14 Assessment/Plan - Assessment Assessment: psychosis depression schizophrenia dementia - Plan Plan: continue current medications. Nutritional Asmnt/Malnutr-PDOC - Dietary Evaluation Malnutrition Findings (Please click <Entered> for more info): Nutritional Asmnt/Malnutrition Start: 01/14/18 13: 48 Text: Status: Complete Freq: Protocol: Document 01/14/18 13:48 LCHENG (Rec: 01/14/18 13:51 LCALANG [email or web address]) Nutritional Asmnt/Malnutrition Patient General Information Nutritional Screening Low Risk Diagnosis psychosis NOS Pertinent Medical Hx/Surgical Hx dementia, psychosis, depression,s chizophrenia Subjective Information Pt seen sleeping in bed at time of visit. Per EMR, PO intake 50-75%, meeting estimated nutritional needs. Current Diet Order/ Nutrition Support regular Pertinent Medications culturelle, colace Pertinent Labs 01/07 cholesterol 218 Nutritional Hx/Data Height 1.55 m Height (Calculated Centimeters) 154.9 Current Weight (lbs) 52.163 kg Weight (Calculated Kilograms) 52.2 Weight (Calculated Grams) 85448.1 [place] Body Weight 105 Body Mass Index (BMI) 21.7 Weight Status Approriate GI Symptoms GI Symptoms None Last BM 01/12 Difficult in: None Skin Integrity/Comment: intact Current %PO Fair (50-74%) Estimated Nutritional Goals BEE in Kcals: Using Current wt Calories/Kcals/Kg 25-30 Kcals Calculated 5048-3682 Protein: Using Current wt Protein g/k Protein Calculated 52 Fluid: ml 1300-1560ml (1ml/kcal) Nutritional Problem No current Nutrition Prob Problem N/A Intervention/Recommendation Comments 1. Continue with regular diet as ordered. 2. Monitor PO intake, wt, labs and skin integrity 3. F/U as low risk in 7 days, 01/21 Expected Outcomes/Goals Expected Outcomes/Goals 1. PO intake to meet at least 75% of nutritional needs. 2. Wt stability, skin to remain intact, labs to approach WNL.
[2018-01-17] MEDS: Lactobacillus Rhamnosus GG 15 Billion CFU CAP.SPRINK PO SCH (09:11)
[2018-01-17] MEDS: Multivitamin w/ Minerals Tab PO SCH (09:11)
--- NOTE | 2018-01-17 11:08 | Progress Notes ---
DATE: 01/17/2018 SUBJECTIVE: Staff was spoken to. The patient is interviewed. Mood is noted to be irritable. Affect is constricted. Coping skills are noted to be still poor. Insight and judgment are noted to have very much impaired. The patient has been accusing the other patients in the groups and they are not able to keep her in the groups. The patient has been having difficult time to cope with the stress. ASSESSMENT: The patient is still paranoid and impulsive today. PLAN: To continue the patient with the current medications. I encouraged the patient to verbalize the concerns rather than to act out. JOB# [id number]
--- NOTE | 2018-01-18 08:12 | General Progress Note ---
Subjective - Review of Systems Service Date: 01/18/18 Subjective: Patient is awake, alert, no acute distress T 97.9 P 75 BP 130/70 R 20 Objective - Results Result Diagrams: 01/07/18 16:45 01/07/18 16:45 Recent Labs: Laboratory Last Values WBC 7.4 Th/cmm (4.8-10.8) 01/07/18 16:45 RBC 4.80 Mil/cmm (3.80-5.20) 01/07/18 16:45 Hgb 13.7 gm/dL (12-16) 01/07/18 16:45 Hct 41.1 % (41.0-60) 01/07/18 16:45 MCV 85.8 fl (81-100) 01/07/18 16:45 MCH 28.5 pg (27.0-31.0) 01/07/18 16:45 MCHC Differential 33.2 pg (28.0-36.0) 01/07/18 16:45 RDW 14.1 % (11.5-20.0) 01/07/18 16:45 Plt Count 248 Th/cmm (150-400) 01/07/18 16:45 MPV 8.0 fl 01/07/18 16:45 Neutrophils % 64.8 % (40.0-80.0) 01/07/18 16:45 Lymphocytes % 24.5 % (20.0-50.0) 01/07/18 16:45 Monocytes % 9.4 % (2.0-10.0) 01/07/18 16:45 Eosinophils % 0.5 % (0.0-5.0) 01/07/18 16:45 Basophils % 0.8 % (0.0-2.0) 01/07/18 16:45 Sodium 138 mEq/L (136-145) 01/07/18 16:45 Potassium 4.0 mEq/L (3.5-5.1) 01/07/18 16:45 Chloride 107 mEq/L (98-107) 01/07/18 16:45 Carbon Dioxide 24.0 mEq/L (21.0-31.0) 01/07/18 16:45 Anion Gap 11.0 (7.0-16.0) 01/07/18 16:45 BUN 22 mg/dL (7-25) 01/07/18 16:45 Creatinine 0.9 mg/dL (0.6-1.2) 01/07/18 16:45 Est GFR ( Amer) TNP 01/07/18 16:45 Est GFR (Non-Af Amer) TNP 01/07/18 16:45 BUN/Creatinine Ratio 24.4 01/07/18 16:45 Glucose 103 mg/dL (70-105) 01/07/18 16:45 Hemoglobin A1c % 5.3 % (4.0-6.0) 01/07/18 16:45 Calcium 9.3 mg/dL (8.6-10.3) 01/07/18 16:45 Total Bilirubin 0.3 mg/dL (0.3-1.0) 01/07/18 16:45 AST 16 U/L (13-39) 01/07/18 16:45 ALT 15 U/L (7-52) 01/07/18 16:45 Alkaline Phosphatase 68 U/L (34-104) 01/07/18 16:45 Total Protein 6.6 gm/dL (6.0-8.3) 01/07/18 16:45 Albumin 3.8 gm/dL (3.7-5.3) 01/07/18 16:45 Globulin 2.8 gm/dL 01/07/18 16:45 Albumin/Globulin Ratio 1.4 (1.0-1.8) 01/07/18 16:45 Triglycerides 143 mg/dL (<150) 01/07/18 16:45 Cholesterol 218 mg/dL (<200) H 01/07/18 16:45 LDL Cholesterol Direct 137 mg/dL (75-193) 01/07/18 16:45 HDL Cholesterol 55 mg/dL (23-92) 01/07/18 16:45 TSH 1.02 uIU/ml (0.34-5.60) 01/07/18 16:45 RPR NONREACTIVE (NONREACTIVE) 01/07/18 16:45 - Physical Exam Vitals and I&O: Vital Signs Temp 97.9 F 01/18/18 05:54 Pulse 75 01/18/18 05:54 Resp 20 01/18/18 05:54 BP 130/70 01/18/18 05:54 Pulse Ox 94 01/18/18 05:54 Intake & Output 01/17/18 01/18/18 01/18/18 18:59 06:59 18:59 Intake Total 700 240 Balance 700 240 Intake: Oral 700 240 Other: # Voids 3 2 # Bowel Movements 0 0 Active Medications: Current Medications Acetaminophen (Tylenol) 650 mg PO Q4H PRN PRN Reason: MILD PAIN (LEVEL 1-3) Stop: 03/08/18 21:54 Docusate Sodium (Colace) 100 mg PO BID [facility] Stop: 03/09/18 08:59 Last Admin: 01/17/18 16:25 Dose: 100 mg Donepezil HCl (Aricept) 5 mg PO HS [facility] Stop: 03/09/18 20:59 Last Admin: 01/17/18 21:36 Dose: 5 mg Escitalopram Oxalate (Lexapro) 10 mg PO DAILY [facility]; Protocol Stop: 03/09/18 08:59 Last Admin: 01/17/18 09:11 Dose: 10 mg Haloperidol (Haldol) 1 mg PO HS [facility]; Protocol Stop: 03/17/18 20:59 Last Admin: 01/17/18 21:36 Dose: 1 mg Lactobacillus Rhamnosus (Culturelle 15b) 1 each PO DAILY [facility] Stop: 03/09/18 08:59 Last Admin: 01/17/18 09:11 Dose: 1 each Lorazepam (Ativan) 0.5 mg PO Q4HR PRN; Protocol PRN Reason: Anxiety Stop: 03/08/18 21:54 Last Admin: 01/15/18 13:24 Dose: 0.5 mg Magnesium Hydroxide (Milk Of Magnesia) 30 ml PO DAILY PRN PRN Reason: Constipation Stop: 03/08/18 21:54 Memantine (Namenda) 10 mg PO DAILY [facility] Stop: 03/09/18 08:59 Last Admin: 01/17/18 09:10 Dose: 10 mg Promethazine HCl/Dextromethorphan (Phenergan Dm 6.25/15mg-5 Ml) 5 ml PO Q8H PRN PRN Reason: Cough Stop: 03/08/18 21:54 Tramadol HCl (Ultram) 50 mg PO BID PRN PRN Reason: Pain (Severe) Stop: 03/08/18 21:54 Zolpidem Tartrate (Ambien) 5 mg PO HS PRN PRN Reason: Insomnia Stop: 03/08/18 21:54 Last Admin: 01/16/18 23:04 Dose: 5 mg General: No acute distress HEENT: Atraumatic, PERRLA, EOMI Neck: Supple Cardiovascular: Regular rate, Normal S1, Normal S2 Lungs: Clear to auscultation Abdomen: Bowel sounds Extremities: no Clubbing, no Cyanosis, no Edema - Procedures Procedures: Procedures Procedure Code Date GROUP PSYCHOTHERAPY 47842 10/12/15 GROUP PSYCHOTHERAPY GZHZZZZ 10/12/15 GROUP PSYCHOTHERAPY 43535 03/15/15 GROUP PSYCHOTHERAPY GZHZZZZ 03/15/15 OTHER GROUP THERAPY 94.44 12/18/14 Assessment/Plan - Assessment Assessment: psychosis depression schizophrenia dementia - Plan Plan: continue current medications. Nutritional Asmnt/Malnutr-PDOC - Dietary Evaluation Malnutrition Findings (Please click <Entered> for more info): Nutritional Asmnt/Malnutrition Start: 01/14/18 13: 48 Text: Status: Complete Freq: Protocol: Document 01/14/18 13:48 LCALANG (Rec: 01/14/18 13:51 [email or web address] [email or web address]) Nutritional Asmnt/Malnutrition Patient General Information Nutritional Screening Low Risk Diagnosis psychosis NOS Pertinent Medical Hx/Surgical Hx dementia, psychosis, depression,s chizophrenia Subjective Information Pt seen sleeping in bed at time of visit. Per EMR, PO intake 50-75%, meeting estimated nutritional needs. Current Diet Order/ Nutrition Support regular Pertinent Medications culturelle, colace Pertinent Labs 01/07 cholesterol 218 Nutritional Hx/Data Height 1.55 m Height (Calculated Centimeters) 154.9 Current Weight (lbs) 52.163 kg Weight (Calculated Kilograms) 52.2 Weight (Calculated Grams) 54544.1 [place] Body Weight 105 Body Mass Index (BMI) 21.7 Weight Status Approriate GI Symptoms GI Symptoms None Last BM 01/12 Difficult in: None Skin Integrity/Comment: intact Current %PO Fair (50-74%) Estimated Nutritional Goals BEE in Kcals: Using Current wt Calories/Kcals/Kg 25-30 Kcals Calculated 7231-1554 Protein: Using Current wt Protein g/k Protein Calculated 52 Fluid: ml 1300-1560ml (1ml/kcal) Nutritional Problem No current Nutrition Prob Problem N/A Intervention/Recommendation Comments 1. Continue with regular diet as ordered. 2. Monitor PO intake, wt, labs and skin integrity 3. F/U as low risk in 7 days, 01/21 Expected Outcomes/Goals Expected Outcomes/Goals 1. PO intake to meet at least 75% of nutritional needs. 2. Wt stability, skin to remain intact, labs to approach WNL.
[2018-01-18] MEDS: Multivitamin w/ Minerals Tab PO SCH (10:00)
[2018-01-18] MEDS: Lactobacillus Rhamnosus GG 15 Billion CFU CAP.SPRINK PO SCH (10:00)
--- NOTE | 2018-01-19 00:24 | Progress Notes ---
DATE: 01/18/2018 PSYCHIATRIC PROGRESS NOTE SUBJECTIVE: Staff was spoken to. The patient is interviewed. Mood is noted to be irritable. Affect is constricted. Coping skills are noted to be still poor. Continues to be very paranoid, isolative and withdrawn. The patient is getting easily agitated and the patient has to be pulled out of the groups in view of her screaming and yelling and paranoid delusions. In view of the paranoia, I have decided to start the patient with lower dose of the Risperdal, which is going to be given at 1 mg tonight and the patient is going to be followed up with supportive therapy. JOB# [id number]
--- NOTE | 2018-01-19 08:15 | General Progress Note ---
Subjective - Review of Systems Service Date: 01/19/18 Subjective: Patient is awake, alert, no acute distress T 98.8 P 87 BP 131/75 R 19 Objective - Results Result Diagrams: 01/07/18 16:45 01/07/18 16:45 Recent Labs: Laboratory Last Values WBC 7.4 Th/cmm (4.8-10.8) 01/07/18 16:45 RBC 4.80 Mil/cmm (3.80-5.20) 01/07/18 16:45 Hgb 13.7 gm/dL (12-16) 01/07/18 16:45 Hct 41.1 % (41.0-60) 01/07/18 16:45 MCV 85.8 fl (81-100) 01/07/18 16:45 MCH 28.5 pg (27.0-31.0) 01/07/18 16:45 MCHC Differential 33.2 pg (28.0-36.0) 01/07/18 16:45 RDW 14.1 % (11.5-20.0) 01/07/18 16:45 Plt Count 248 Th/cmm (150-400) 01/07/18 16:45 MPV 8.0 fl 01/07/18 16:45 Neutrophils % 64.8 % (40.0-80.0) 01/07/18 16:45 Lymphocytes % 24.5 % (20.0-50.0) 01/07/18 16:45 Monocytes % 9.4 % (2.0-10.0) 01/07/18 16:45 Eosinophils % 0.5 % (0.0-5.0) 01/07/18 16:45 Basophils % 0.8 % (0.0-2.0) 01/07/18 16:45 Sodium 138 mEq/L (136-145) 01/07/18 16:45 Potassium 4.0 mEq/L (3.5-5.1) 01/07/18 16:45 Chloride 107 mEq/L (98-107) 01/07/18 16:45 Carbon Dioxide 24.0 mEq/L (21.0-31.0) 01/07/18 16:45 Anion Gap 11.0 (7.0-16.0) 01/07/18 16:45 BUN 22 mg/dL (7-25) 01/07/18 16:45 Creatinine 0.9 mg/dL (0.6-1.2) 01/07/18 16:45 Est GFR ( Amer) TNP 01/07/18 16:45 Est GFR (Non-Af Amer) TNP 01/07/18 16:45 BUN/Creatinine Ratio 24.4 01/07/18 16:45 Glucose 103 mg/dL (70-105) 01/07/18 16:45 Hemoglobin A1c % 5.3 % (4.0-6.0) 01/07/18 16:45 Calcium 9.3 mg/dL (8.6-10.3) 01/07/18 16:45 Total Bilirubin 0.3 mg/dL (0.3-1.0) 01/07/18 16:45 AST 16 U/L (13-39) 01/07/18 16:45 ALT 15 U/L (7-52) 01/07/18 16:45 Alkaline Phosphatase 68 U/L (34-104) 01/07/18 16:45 Total Protein 6.6 gm/dL (6.0-8.3) 01/07/18 16:45 Albumin 3.8 gm/dL (3.7-5.3) 01/07/18 16:45 Globulin 2.8 gm/dL 01/07/18 16:45 Albumin/Globulin Ratio 1.4 (1.0-1.8) 01/07/18 16:45 Triglycerides 143 mg/dL (<150) 01/07/18 16:45 Cholesterol 218 mg/dL (<200) H 01/07/18 16:45 LDL Cholesterol Direct 137 mg/dL (75-193) 01/07/18 16:45 HDL Cholesterol 55 mg/dL (23-92) 01/07/18 16:45 TSH 1.02 uIU/ml (0.34-5.60) 01/07/18 16:45 RPR NONREACTIVE (NONREACTIVE) 01/07/18 16:45 - Physical Exam Vitals and I&O: Vital Signs Temp 98.8 F 01/19/18 06:25 Pulse 87 01/19/18 06:25 Resp 19 01/19/18 06:25 BP 131/75 01/19/18 06:25 Pulse Ox 96 01/19/18 06:25 Intake & Output 01/18/18 01/19/18 01/19/18 18:59 06:59 18:59 Intake Total 800 120 Balance 800 120 Intake: Oral 800 120 Other: # Voids 3 3 # Bowel Movements 1 0 Active Medications: Current Medications Acetaminophen (Tylenol) 650 mg PO Q4H PRN PRN Reason: MILD PAIN (LEVEL 1-3) Stop: 03/08/18 21:54 Docusate Sodium (Colace) 100 mg PO BID [facility] Stop: 03/09/18 08:59 Last Admin: 01/18/18 16:18 Dose: 100 mg Donepezil HCl (Aricept) 5 mg PO HS [facility] Stop: 03/09/18 20:59 Last Admin: 01/18/18 21:12 Dose: 5 mg Escitalopram Oxalate (Lexapro) 10 mg PO DAILY [facility]; Protocol Stop: 03/09/18 08:59 Last Admin: 01/18/18 10:00 Dose: 10 mg Haloperidol (Haldol) 1 mg PO HS [facility]; Protocol Stop: 03/17/18 20:59 Last Admin: 01/18/18 21:12 Dose: 1 mg Lactobacillus Rhamnosus (Culturelle 15b) 1 each PO DAILY [facility] Stop: 03/09/18 08:59 Last Admin: 01/18/18 10:00 Dose: 1 each Lorazepam (Ativan) 0.5 mg PO Q4HR PRN; Protocol PRN Reason: Anxiety Stop: 03/08/18 21:54 Last Admin: 01/15/18 13:24 Dose: 0.5 mg Magnesium Hydroxide (Milk Of Magnesia) 30 ml PO DAILY PRN PRN Reason: Constipation Stop: 03/08/18 21:54 Memantine (Namenda) 10 mg PO DAILY [facility] Stop: 03/09/18 08:59 Last Admin: 01/18/18 10:00 Dose: 10 mg Promethazine HCl/Dextromethorphan (Phenergan Dm 6.25/15mg-5 Ml) 5 ml PO Q8H PRN PRN Reason: Cough Stop: 03/08/18 21:54 Risperidone (Risperdal) 1 mg PO HS [facility]; Protocol Stop: 03/19/18 20:59 Tramadol HCl (Ultram) 50 mg PO BID PRN PRN Reason: Pain (Severe) Stop: 03/08/18 21:54 Zolpidem Tartrate (Ambien) 5 mg PO HS PRN PRN Reason: Insomnia Stop: 03/08/18 21:54 Last Admin: 01/16/18 23:04 Dose: 5 mg General: Alert, No acute distress HEENT: Atraumatic, PERRLA, EOMI Neck: Supple Cardiovascular: Regular rate, Normal S1, Normal S2 Lungs: Clear to auscultation Abdomen: Bowel sounds Extremities: no Clubbing, no Cyanosis, no Edema - Procedures Procedures: Procedures Procedure Code Date GROUP PSYCHOTHERAPY 73156 10/12/15 GROUP PSYCHOTHERAPY GZHZZZZ 10/12/15 GROUP PSYCHOTHERAPY 25920 03/15/15 GROUP PSYCHOTHERAPY GZHZZZZ 03/15/15 OTHER GROUP THERAPY 94.44 12/18/14 Assessment/Plan - Assessment Assessment: psychosis depression schizophrenia dementia - Plan Plan: continue current medications. Nutritional Asmnt/Malnutr-PDOC - Dietary Evaluation Malnutrition Findings (Please click <Entered> for more info): Nutritional Asmnt/Malnutrition Start: 01/14/18 13: 48 Text: Status: Complete Freq: Protocol: Document 01/14/18 13:48 LCHENG (Rec: 01/14/18 13:51 LCHENG [email or web address]) Nutritional Asmnt/Malnutrition Patient General Information Nutritional Screening Low Risk Diagnosis psychosis NOS Pertinent Medical Hx/Surgical Hx dementia, psychosis, depression,s chizophrenia Subjective Information Pt seen sleeping in bed at time of visit. Per EMR, PO intake 50-75%, meeting estimated nutritional needs. Current Diet Order/ Nutrition Support regular Pertinent Medications culturelle, colace Pertinent Labs 01/07 cholesterol 218 Nutritional Hx/Data Height 1.55 m Height (Calculated Centimeters) 154.9 Current Weight (lbs) 52.163 kg Weight (Calculated Kilograms) 52.2 Weight (Calculated Grams) 80564.1 [place] Body Weight 105 Body Mass Index (BMI) 21.7 Weight Status Approriate GI Symptoms GI Symptoms None Last BM 01/12 Difficult in: None Skin Integrity/Comment: intact Current %PO Fair (50-74%) Estimated Nutritional Goals BEE in Kcals: Using Current wt Calories/Kcals/Kg 25-30 Kcals Calculated 0088-6737 Protein: Using Current wt Protein g/k Protein Calculated 52 Fluid: ml 1300-1560ml (1ml/kcal) Nutritional Problem No current Nutrition Prob Problem N/A Intervention/Recommendation Comments 1. Continue with regular diet as ordered. 2. Monitor PO intake, wt, labs and skin integrity 3. F/U as low risk in 7 days, 01/21 Expected Outcomes/Goals Expected Outcomes/Goals 1. PO intake to meet at least 75% of nutritional needs. 2. Wt stability, skin to remain intact, labs to approach WNL.
[2018-01-19] MEDS: Lactobacillus Rhamnosus GG 15 Billion CFU CAP.SPRINK PO SCH (08:57)
[2018-01-19] MEDS: Multivitamin w/ Minerals Tab PO SCH (08:58)
--- NOTE | 2018-01-19 23:21 | Progress Notes ---
DATE: 01/19/2018 SUBJECTIVE: Staff was spoken to. The patient is interviewed. Mood is noted to be irritable. The patient is isolative, withdrawn, coping skills are noted to be very poor. The patient is hanging on to her doll and the patient has been getting very angry that the was there last night to poison her. ASSESSMENT: The patient is still psychotic. PLAN: To continue the patient with the supportive therapy. I encouraged her to comply with the current medications and follow up. JOB# [id number]
[2018-01-20] MEDS: Lactobacillus Rhamnosus GG 15 Billion CFU CAP.SPRINK PO SCH (08:31)
[2018-01-20] MEDS: Multivitamin w/ Minerals Tab PO SCH (08:32)
--- NOTE | 2018-01-20 08:33 | General Progress Note ---
Subjective - Review of Systems Service Date: 01/20/18 Subjective: Patient is awake, alert, no acute distress T 97.6 P 70 BP 125/59 R 19 Objective - Results Result Diagrams: 01/07/18 16:45 01/07/18 16:45 Recent Labs: Laboratory Last Values WBC 7.4 Th/cmm (4.8-10.8) 01/07/18 16:45 RBC 4.80 Mil/cmm (3.80-5.20) 01/07/18 16:45 Hgb 13.7 gm/dL (12-16) 01/07/18 16:45 Hct 41.1 % (41.0-60) 01/07/18 16:45 MCV 85.8 fl (81-100) 01/07/18 16:45 MCH 28.5 pg (27.0-31.0) 01/07/18 16:45 MCHC Differential 33.2 pg (28.0-36.0) 01/07/18 16:45 RDW 14.1 % (11.5-20.0) 01/07/18 16:45 Plt Count 248 Th/cmm (150-400) 01/07/18 16:45 MPV 8.0 fl 01/07/18 16:45 Neutrophils % 64.8 % (40.0-80.0) 01/07/18 16:45 Lymphocytes % 24.5 % (20.0-50.0) 01/07/18 16:45 Monocytes % 9.4 % (2.0-10.0) 01/07/18 16:45 Eosinophils % 0.5 % (0.0-5.0) 01/07/18 16:45 Basophils % 0.8 % (0.0-2.0) 01/07/18 16:45 Sodium 138 mEq/L (136-145) 01/07/18 16:45 Potassium 4.0 mEq/L (3.5-5.1) 01/07/18 16:45 Chloride 107 mEq/L (98-107) 01/07/18 16:45 Carbon Dioxide 24.0 mEq/L (21.0-31.0) 01/07/18 16:45 Anion Gap 11.0 (7.0-16.0) 01/07/18 16:45 BUN 22 mg/dL (7-25) 01/07/18 16:45 Creatinine 0.9 mg/dL (0.6-1.2) 01/07/18 16:45 Est GFR ( Amer) TNP 01/07/18 16:45 Est GFR (Non-Af Amer) TNP 01/07/18 16:45 BUN/Creatinine Ratio 24.4 01/07/18 16:45 Glucose 103 mg/dL (70-105) 01/07/18 16:45 Hemoglobin A1c % 5.3 % (4.0-6.0) 01/07/18 16:45 Calcium 9.3 mg/dL (8.6-10.3) 01/07/18 16:45 Total Bilirubin 0.3 mg/dL (0.3-1.0) 01/07/18 16:45 AST 16 U/L (13-39) 01/07/18 16:45 ALT 15 U/L (7-52) 01/07/18 16:45 Alkaline Phosphatase 68 U/L (34-104) 01/07/18 16:45 Total Protein 6.6 gm/dL (6.0-8.3) 01/07/18 16:45 Albumin 3.8 gm/dL (3.7-5.3) 01/07/18 16:45 Globulin 2.8 gm/dL 01/07/18 16:45 Albumin/Globulin Ratio 1.4 (1.0-1.8) 01/07/18 16:45 Triglycerides 143 mg/dL (<150) 01/07/18 16:45 Cholesterol 218 mg/dL (<200) H 01/07/18 16:45 LDL Cholesterol Direct 137 mg/dL (75-193) 01/07/18 16:45 HDL Cholesterol 55 mg/dL (23-92) 01/07/18 16:45 TSH 1.02 uIU/ml (0.34-5.60) 01/07/18 16:45 RPR NONREACTIVE (NONREACTIVE) 01/07/18 16:45 - Physical Exam Vitals and I&O: Vital Signs Temp 97.8 F 01/20/18 06:13 Pulse 70 01/20/18 06:13 Resp 19 01/20/18 06:13 BP 125/59 01/20/18 06:13 Pulse Ox 97 01/20/18 06:13 Intake & Output 01/19/18 01/20/18 01/20/18 18:59 06:59 18:59 Intake Total 900 240 Balance 900 240 Intake: Oral 900 240 Other: # Voids 3 1 # Bowel Movements 1 0 Active Medications: Current Medications Acetaminophen (Tylenol) 650 mg PO Q4H PRN PRN Reason: MILD PAIN (LEVEL 1-3) Stop: 03/08/18 21:54 Docusate Sodium (Colace) 100 mg PO BID [facility] Stop: 03/09/18 08:59 Last Admin: 01/19/18 16:23 Dose: 100 mg Donepezil HCl (Aricept) 5 mg PO HS [facility] Stop: 03/09/18 20:59 Last Admin: 01/19/18 21:20 Dose: 5 mg Escitalopram Oxalate (Lexapro) 10 mg PO DAILY [facility]; Protocol Stop: 03/09/18 08:59 Last Admin: 01/19/18 08:57 Dose: 10 mg Haloperidol (Haldol) 1 mg PO HS [facility]; Protocol Stop: 03/17/18 20:59 Last Admin: 01/19/18 21:19 Dose: 1 mg Lactobacillus Rhamnosus (Culturelle 15b) 1 each PO DAILY [facility] Stop: 03/09/18 08:59 Last Admin: 01/19/18 08:57 Dose: 1 each Lorazepam (Ativan) 0.5 mg PO Q4HR PRN; Protocol PRN Reason: Anxiety Stop: 03/08/18 21:54 Last Admin: 01/15/18 13:24 Dose: 0.5 mg Magnesium Hydroxide (Milk Of Magnesia) 30 ml PO DAILY PRN PRN Reason: Constipation Stop: 03/08/18 21:54 Memantine (Namenda) 10 mg PO DAILY [facility] Stop: 03/09/18 08:59 Last Admin: 01/19/18 08:57 Dose: 10 mg Promethazine HCl/Dextromethorphan (Phenergan Dm 6.25/15mg-5 Ml) 5 ml PO Q8H PRN PRN Reason: Cough Stop: 03/08/18 21:54 Risperidone (Risperdal) 1 mg PO HS [facility]; Protocol Stop: 03/19/18 20:59 Last Admin: 01/19/18 21:00 Dose: Not Given Tramadol HCl (Ultram) 50 mg PO BID PRN PRN Reason: Pain (Severe) Stop: 03/08/18 21:54 Zolpidem Tartrate (Ambien) 5 mg PO HS PRN PRN Reason: Insomnia Stop: 03/08/18 21:54 Last Admin: 01/16/18 23:04 Dose: 5 mg General: Alert, No acute distress HEENT: Atraumatic, PERRLA, EOMI Neck: Supple Cardiovascular: Regular rate, Normal S1, Normal S2 Lungs: Clear to auscultation Abdomen: Bowel sounds Extremities: no Clubbing, no Cyanosis, no Edema - Procedures Procedures: Procedures Procedure Code Date GROUP PSYCHOTHERAPY 51739 10/12/15 GROUP PSYCHOTHERAPY GZHZZZZ 10/12/15 GROUP PSYCHOTHERAPY 88305 03/15/15 GROUP PSYCHOTHERAPY GZHZZZZ 03/15/15 OTHER GROUP THERAPY 94.44 12/18/14 Assessment/Plan - Assessment Assessment: psychosis depression schizophrenia dementia - Plan Plan: continue current medications. Nutritional Asmnt/Malnutr-PDOC - Dietary Evaluation Malnutrition Findings (Please click <Entered> for more info): Nutritional Asmnt/Malnutrition Start: 01/14/18 13: 48 Text: Status: Complete Freq: Protocol: Document 01/14/18 13:48 LCHENG (Rec: 01/14/18 13:51 LCHENG [email or web address]) Nutritional Asmnt/Malnutrition Patient General Information Nutritional Screening Low Risk Diagnosis psychosis NOS Pertinent Medical Hx/Surgical Hx dementia, psychosis, depression,s chizophrenia Subjective Information Pt seen sleeping in bed at time of visit. Per EMR, PO intake 50-75%, meeting estimated nutritional needs. Current Diet Order/ Nutrition Support regular Pertinent Medications culturelle, colace Pertinent Labs 01/07 cholesterol 218 Nutritional Hx/Data Height 1.55 m Height (Calculated Centimeters) 154.9 Current Weight (lbs) 52.163 kg Weight (Calculated Kilograms) 52.2 Weight (Calculated Grams) 29985.1 [place] Body Weight 105 Body Mass Index (BMI) 21.7 Weight Status Approriate GI Symptoms GI Symptoms None Last BM 01/12 Difficult in: None Skin Integrity/Comment: intact Current %PO Fair (50-74%) Estimated Nutritional Goals BEE in Kcals: Using Current wt Calories/Kcals/Kg 25-30 Kcals Calculated 8439-7294 Protein: Using Current wt Protein g/k Protein Calculated 52 Fluid: ml 1300-1560ml (1ml/kcal) Nutritional Problem No current Nutrition Prob Problem N/A Intervention/Recommendation Comments 1. Continue with regular diet as ordered. 2. Monitor PO intake, wt, labs and skin integrity 3. F/U as low risk in 7 days, 01/21 Expected Outcomes/Goals Expected Outcomes/Goals 1. PO intake to meet at least 75% of nutritional needs. 2. Wt stability, skin to remain intact, labs to approach WNL.
--- NOTE | 2018-01-21 00:39 | Progress Notes ---
DATE: 01/20/2018 PSYCHIATRIC PROGRESS NOTE SUBJECTIVE: Staff was spoken to. The patient is interviewed. Mood is noted to be anxious. Affect is appropriate. The patient has paranoia, but denies any command hallucinations. The patient is still hugging to her doll and has been talking about her . No major behavioral problems are noted today. ASSESSMENT: The patient's psychosis is resolving. PLAN: To continue the patient with the supportive therapy and followup. JOB# [id number]
--- NOTE | 2018-01-21 08:13 | General Progress Note ---
Subjective - Review of Systems Service Date: 01/21/18 Subjective: Patient is awake, alert, no acute distress T 97.9 P 70 BP 128/71 R 19 Objective - Results Result Diagrams: 01/07/18 16:45 01/07/18 16:45 Recent Labs: Laboratory Last Values WBC 7.4 Th/cmm (4.8-10.8) 01/07/18 16:45 RBC 4.80 Mil/cmm (3.80-5.20) 01/07/18 16:45 Hgb 13.7 gm/dL (12-16) 01/07/18 16:45 Hct 41.1 % (41.0-60) 01/07/18 16:45 MCV 85.8 fl (81-100) 01/07/18 16:45 MCH 28.5 pg (27.0-31.0) 01/07/18 16:45 MCHC Differential 33.2 pg (28.0-36.0) 01/07/18 16:45 RDW 14.1 % (11.5-20.0) 01/07/18 16:45 Plt Count 248 Th/cmm (150-400) 01/07/18 16:45 MPV 8.0 fl 01/07/18 16:45 Neutrophils % 64.8 % (40.0-80.0) 01/07/18 16:45 Lymphocytes % 24.5 % (20.0-50.0) 01/07/18 16:45 Monocytes % 9.4 % (2.0-10.0) 01/07/18 16:45 Eosinophils % 0.5 % (0.0-5.0) 01/07/18 16:45 Basophils % 0.8 % (0.0-2.0) 01/07/18 16:45 Sodium 138 mEq/L (136-145) 01/07/18 16:45 Potassium 4.0 mEq/L (3.5-5.1) 01/07/18 16:45 Chloride 107 mEq/L (98-107) 01/07/18 16:45 Carbon Dioxide 24.0 mEq/L (21.0-31.0) 01/07/18 16:45 Anion Gap 11.0 (7.0-16.0) 01/07/18 16:45 BUN 22 mg/dL (7-25) 01/07/18 16:45 Creatinine 0.9 mg/dL (0.6-1.2) 01/07/18 16:45 Est GFR ( Amer) TNP 01/07/18 16:45 Est GFR (Non-Af Amer) TNP 01/07/18 16:45 BUN/Creatinine Ratio 24.4 01/07/18 16:45 Glucose 103 mg/dL (70-105) 01/07/18 16:45 Hemoglobin A1c % 5.3 % (4.0-6.0) 01/07/18 16:45 Calcium 9.3 mg/dL (8.6-10.3) 01/07/18 16:45 Total Bilirubin 0.3 mg/dL (0.3-1.0) 01/07/18 16:45 AST 16 U/L (13-39) 01/07/18 16:45 ALT 15 U/L (7-52) 01/07/18 16:45 Alkaline Phosphatase 68 U/L (34-104) 01/07/18 16:45 Total Protein 6.6 gm/dL (6.0-8.3) 01/07/18 16:45 Albumin 3.8 gm/dL (3.7-5.3) 01/07/18 16:45 Globulin 2.8 gm/dL 01/07/18 16:45 Albumin/Globulin Ratio 1.4 (1.0-1.8) 01/07/18 16:45 Triglycerides 143 mg/dL (<150) 01/07/18 16:45 Cholesterol 218 mg/dL (<200) H 01/07/18 16:45 LDL Cholesterol Direct 137 mg/dL (75-193) 01/07/18 16:45 HDL Cholesterol 55 mg/dL (23-92) 01/07/18 16:45 TSH 1.02 uIU/ml (0.34-5.60) 01/07/18 16:45 RPR NONREACTIVE (NONREACTIVE) 01/07/18 16:45 - Physical Exam Vitals and I&O: Vital Signs Temp 97.9 F 01/21/18 06:22 Pulse 70 01/21/18 06:22 Resp 19 01/21/18 06:22 BP 128/71 01/21/18 06:22 Pulse Ox 96 01/21/18 06:22 Intake & Output 01/20/18 01/21/18 01/21/18 18:59 06:59 18:59 Intake Total 1000 120 Balance 1000 120 Intake: Oral 1000 120 Other: # Voids 4 3 # Bowel Movements 1 Active Medications: Current Medications Acetaminophen (Tylenol) 650 mg PO Q4H PRN PRN Reason: MILD PAIN (LEVEL 1-3) Stop: 03/08/18 21:54 Docusate Sodium (Colace) 100 mg PO BID [facility] Stop: 03/09/18 08:59 Last Admin: 01/20/18 17:44 Dose: Not Given Donepezil HCl (Aricept) 5 mg PO HS [facility] Stop: 03/09/18 20:59 Last Admin: 01/20/18 21:46 Dose: 5 mg Escitalopram Oxalate (Lexapro) 10 mg PO DAILY [facility]; Protocol Stop: 03/09/18 08:59 Last Admin: 01/20/18 08:32 Dose: 10 mg Haloperidol (Haldol) 1 mg PO HS [facility]; Protocol Stop: 03/17/18 20:59 Last Admin: 01/20/18 21:45 Dose: 1 mg Lactobacillus Rhamnosus (Culturelle 15b) 1 each PO DAILY [facility] Stop: 03/09/18 08:59 Last Admin: 01/20/18 08:31 Dose: 1 each Lorazepam (Ativan) 0.5 mg PO Q4HR PRN; Protocol PRN Reason: Anxiety Stop: 03/08/18 21:54 Last Admin: 01/15/18 13:24 Dose: 0.5 mg Magnesium Hydroxide (Milk Of Magnesia) 30 ml PO DAILY PRN PRN Reason: Constipation Stop: 03/08/18 21:54 Memantine (Namenda) 10 mg PO DAILY [facility] Stop: 03/09/18 08:59 Last Admin: 01/20/18 08:31 Dose: 10 mg Promethazine HCl/Dextromethorphan (Phenergan Dm 6.25/15mg-5 Ml) 5 ml PO Q8H PRN PRN Reason: Cough Stop: 03/08/18 21:54 Risperidone (Risperdal) 1 mg PO HS SHAYNA; Protocol Stop: 03/19/18 20:59 Last Admin: 01/20/18 21:46 Dose: 1 mg Tramadol HCl (Ultram) 50 mg PO BID PRN PRN Reason: Pain (Severe) Stop: 03/08/18 21:54 Zolpidem Tartrate (Ambien) 5 mg PO HS PRN PRN Reason: Insomnia Stop: 03/08/18 21:54 Last Admin: 01/16/18 23:04 Dose: 5 mg General: Alert, No acute distress HEENT: Atraumatic, PERRLA, EOMI Neck: Supple Cardiovascular: Regular rate, Normal S1, Normal S2 Lungs: Clear to auscultation Abdomen: Bowel sounds Extremities: no Clubbing, no Cyanosis, no Edema - Procedures Procedures: Procedures Procedure Code Date GROUP PSYCHOTHERAPY 48702 10/12/15 GROUP PSYCHOTHERAPY [id number] 10/12/15 GROUP PSYCHOTHERAPY 76769 03/15/15 GROUP PSYCHOTHERAPY GZHZZZZ 03/15/15 OTHER GROUP THERAPY 94.44 12/18/14 Assessment/Plan - Assessment Assessment: psychosis depression schizophrenia dementia - Plan Plan: continue current medications. Nutritional Asmnt/Malnutr-PDOC - Dietary Evaluation Malnutrition Findings (Please click <Entered> for more info): Nutritional Asmnt/Malnutrition Start: 01/14/18 13: 48 Text: Status: Complete Freq: Protocol: Document 01/14/18 13:48 LCHENG (Rec: 01/14/18 13:51 LCHENG [email or web address]) Nutritional Asmnt/Malnutrition Patient General Information Nutritional Screening Low Risk Diagnosis psychosis NOS Pertinent Medical Hx/Surgical Hx dementia, psychosis, depression,s chizophrenia Subjective Information Pt seen sleeping in bed at time of visit. Per EMR, PO intake 50-75%, meeting estimated nutritional needs. Current Diet Order/ Nutrition Support regular Pertinent Medications nick redd Pertinent Labs 01/07 cholesterol 218 Nutritional Hx/Data Height 1.55 m Height (Calculated Centimeters) 154.9 Current Weight (lbs) 52.163 kg Weight (Calculated Kilograms) 52.2 Weight (Calculated Grams) 87522.1 [place] Body Weight 105 Body Mass Index (BMI) 21.7 Weight Status Approriate GI Symptoms GI Symptoms None Last BM 01/12 Difficult in: None Skin Integrity/Comment: intact Current %PO Fair (50-74%) Estimated Nutritional Goals BEE in Kcals: Using Current wt Calories/Kcals/Kg 25-30 Kcals Calculated 0148-2298 Protein: Using Current wt Protein g/k Protein Calculated 52 Fluid: ml 1300-1560ml (1ml/kcal) Nutritional Problem No current Nutrition Prob Problem N/A Intervention/Recommendation Comments 1. Continue with regular diet as ordered. 2. Monitor PO intake, wt, labs and skin integrity 3. F/U as low risk in 7 days, 01/21 Expected Outcomes/Goals Expected Outcomes/Goals 1. PO intake to meet at least 75% of nutritional needs. 2. Wt stability, skin to remain intact, labs to approach WNL.
[2018-01-21] MEDS: Multivitamin w/ Minerals Tab PO SCH (08:24)
[2018-01-21] MEDS: Lactobacillus Rhamnosus GG 15 Billion CFU CAP.SPRINK PO SCH (08:24)
--- NOTE | 2018-01-21 11:28 | Progress Notes ---
DATE: 01/21/2018 SUBJECTIVE: Staff was spoken to. The patient is interviewed. Mood is noted to be anxious. Affect is appropriate. Not suicidal or homicidal. Insight and judgment are noted to be fair. Impulse control is also noted to be fair. The patient has paranoia, but denies any command hallucinations. No side effects to medications are noted. ASSESSMENT: The patient is stabilizing. PLAN: To discharge the patient today for followup on outpatient basis. JOB# [id number]
== END 2018-01-21 14:30 | DRG 885 ==
LOC: ER 16:19 → GERO 18:30
PROVIDERS: ADMIT Psychiatry & Neurology Psychiatry; ATTEND Psychiatry & Neurology Psychiatry
DX: F20.0 Paranoid schizophrenia (principal); F29 Unspecified psychosis not due to a substance or known physiological condition; F32.9 Major depressive disorder, single episode, unspecified; F03.90 Unspecified dementia, unspecified severity, without behavioral disturbance, psychotic disturbance, mood disturbance, and anxiety; Z79.899 Other long term (current) drug therapy
CPT/HCPCS: 36415-UA; 80053-TC; 80061-TC; 83036-90; 84443-TC; 85025-TC; 86592-TC; 93005; G0410; J2060

== ENCOUNTER 2018-10-05 21:12 | Inpatient (IN) | payer MEDICARE, MEDICAID ==
--- NOTE | 2018-10-05 21:32 | ED Physician Chart ---
ED Chief Complaint/HPI - Patient Information Date Seen:: 10/05/18 Time Seen:: 21:32 Chief Complaint:: Left breast mass History of Present Illness:: 88 yo Beninese-speaking female SNF resident with history of COPD, dysphagia, dementia, psychosis, depression, anxiety and schizophrenia, noticed a left breast mass for 3 months with mild pain. The left breast mass was brought to attention of nursing staff 1 day ago. Patient did not have fever. Tylenol was given for pain. The patient was then transferred to [facility] ER for evaluation. Allergies:: Allergies Allergy/AdvReac Type Severity Reaction Status Date / Time No Known Allergies Allergy Verified 10/05/18 21:19 Vitals:: Vital Signs - 8 hr 10/05/18 21:15 Temp 97.7 F HR 66 RR 18 BP 105/61 O2 Sat % 95 ED Review of Systems - Review of Systems General/Constitutional: No fever, No chills Skin: No rash Head: No headache Eyes: No pain ENT: No nasal drainage Neck: No neck pain Cardio Vascular: No chest pain Pulmonary: No SOB GI: No nausea, No vomiting Musculoskeletal: No bone or joint pain Psychiatric: Prior psych history Neurological: No focal symptoms ED Past Medical History - Past Medical History Past Medical History: Asthma/COPD, Dementia (AlZHEIMER'S), Other (COPD, OSTEOPOROSIS, HYPOKALIEMIA, HEART DISEASE, DYSPHAGIA, ARTHRITIS ) Social History: Non Smoker, No Alcohol, No Drug Use Surgical History: 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) Psychiatricy History: Depression, Schizophrenia, Other (PSYCHOSIS, ANXIETY) Family Medical History - Family Member Father History Unknown: Yes Ethnicity: Living Status: Unknown Hx Family Cancer: No Hx Family Coronary Artery Disease: No Hx Family Congestive Heart Failure: No Hx Family Hypertension: No Hx Family Stroke: No Hx Family Diabetes: No Hx Family Seizures: No Hx Family Dementia: No Hx Family AIDS: No Hx Family HIV: No Hx Family COPD: No Hx Family Hepatitis: No Hx Family Psychiatric Problems: No Hx Family Tuberculosis: No Mother History Unknown: Yes Ethnicity: Non- Living Status: Unknown Hx Family Cancer: No Hx Family Coronary Artery Disease: No Hx Family Congestive Heart Failure: No Hx Family Hypertension: No Hx Family Stroke: No Hx Family Diabetes: No Hx Family Seizures: No Hx Family Dementia: No Hx Family AIDS: No Hx Family HIV: No Hx Family COPD: No Hx Family Hepatitis: No Hx Family Psychiatric Problems: No Hx Family Tuberculosis: No ED Physical Exam - Physical Examination General/Constitutional: Awake, Alert Head: Atraumatic Eyes: PERRL, EOMI Skin: No skin lesions ENMT: Nasal exam nl Neck: No nuchal rigidity Respiratory: No Wheeze/Rhonchi/Rales Other Respiratory comments:: Large, firm, movable, mild tender mass in the left breast. Cardio Vascular: RRR, No murmur, gallop, rubs, NL S1 S2 GI: No tenderness/rebounding/guarding Extremities: normal strength in all extremities Neuro/Psych: Alert/oriented, No focal deficits ED Labs/Radiology/EKG Results - Lab Results Results: Laboratory Last Values WBC 11.5 Th/cmm (4.8-10.8) H 10/05/18 22:45 RBC 4.64 Mil/cmm (3.80-5.20) 10/05/18 22:45 Hgb 12.0 gm/dL (12-16) 10/05/18 22:45 Hct 36.5 % (41.0-60) L 10/05/18 22:45 MCV 78.8 fl (81-100) L 10/05/18 22:45 MCH 25.9 pg (27.0-31.0) L 10/05/18 22:45 MCHC Differential 32.9 pg (28.0-36.0) 10/05/18 22:45 RDW 13.8 % (11.5-20.0) 10/05/18 22:45 Plt Count 409 Th/cmm (150-400) H 10/05/18 22:45 MPV 7.4 fl 10/05/18 22:45 Neutrophils % 75.6 % (40.0-80.0) 10/05/18 22:45 Lymphocytes % 17.4 % (20.0-50.0) L 10/05/18 22:45 Monocytes % 5.9 % (2.0-10.0) 10/05/18 22:45 Eosinophils % 0.7 % (0.0-5.0) 10/05/18 22:45 Basophils % 0.4 % (0.0-2.0) 10/05/18 22:45 PT 10.2 SECONDS (9.5-11.5) 10/05/18 22:45 INR 0.98 (0.5-1.4) 10/05/18 22:45 PTT (Actin FS) 28.5 SECONDS (26.0-38.0) 10/05/18 22:45 Sodium 135 mEq/L (136-145) L 10/05/18 22:45 Potassium 3.8 mEq/L (3.5-5.1) 10/05/18 22:45 Chloride 103 mEq/L (98-107) 10/05/18 22:45 Carbon Dioxide 25.5 mEq/L (21.0-31.0) 10/05/18 22:45 Anion Gap 10.3 (7.0-16.0) 10/05/18 22:45 BUN 17 mg/dL (7-25) 10/05/18 22:45 Creatinine 0.6 mg/dL (0.6-1.2) 10/05/18 22:45 Est GFR ( Amer) TNP 10/05/18 22:45 Est GFR (Non-Af Amer) TNP 10/05/18 22:45 BUN/Creatinine Ratio 28.3 10/05/18 22:45 Glucose 115 mg/dL (70-105) H 10/05/18 22:45 Calcium 9.3 mg/dL (8.6-10.3) 10/05/18 22:45 Total Bilirubin 0.5 mg/dL (0.3-1.0) 10/05/18 22:45 AST 12 U/L (13-39) L 10/05/18 22:45 ALT 8 U/L (7-52) 10/05/18 22:45 Alkaline Phosphatase 66 U/L (34-104) 10/05/18 22:45 Total Protein 7.0 gm/dL (6.0-8.3) 10/05/18 22:45 Albumin 3.3 gm/dL (3.7-5.3) L 10/05/18 22:45 Globulin 3.7 gm/dL 10/05/18 22:45 Albumin/Globulin Ratio 0.9 (1.0-1.8) L 10/05/18 22:45 Urine Source MIDSTREAM 10/06/18 00:25 Urine Color YELLOW 10/06/18 00:25 Urine Clarity CLEAR (CLEAR) 10/06/18 00:25 Urine pH 5.5 (4.6 - 8.0) 10/06/18 00:25 Ur Specific [place] 1.020 (1.005-1.030) 10/06/18 00:25 Urine Protein NEGATIVE mg/dL (NEGATIVE) 10/06/18 00:25 Urine Glucose (UA) NEGATIVE mg/dL (NEGATIVE) 10/06/18 00:25 Urine Ketones 15 mg/dL (NEGATIVE) H 10/06/18 00:25 Urine Blood NEGATIVE (NEGATIVE) 10/06/18 00:25 Urine Nitrate NEGATIVE (NEGATIVE) 10/06/18 00:25 Urine Bilirubin NEGATIVE (NEGATIVE) 10/06/18 00:25 Urine Urobilinogen 0.2 E.U./dL (0.2 - 1.0) 10/06/18 00:25 Ur Leukocyte Esterase NEGATIVE (NEGATIVE) 10/06/18 00:25 - Radiology Results Results: CXR: No acute pulmonary disease. Large solid left breast mass ED Assessment - Assessment General Assessment: Large left breast mass Leukocytosis Hyponatremia COPD Dysphagia Dementia Schizophrenia Psychosis Assessment/Comments:: CBC, CMP, UA PT/PTT CXR Ancef 1g IV NS 1L IV bolus Admit for further evaluation and management ED Septic Shock - . Is Septic Shock (SBP<90, OR Lactate>4 mmol\L) present?: No - <6hrs of presentation: Vital Signs: Vital Signs - 8 hr 10/05/18 21:15 Temp 97.7 F HR 66 RR 18 BP 105/61 O2 Sat % 95 ED Reassessment (Disposition) - Reassessment Reassessment Condition:: Improved - Patient Disposition Discharge/Transfer:: Acute Care w/in this hosp Admitting Medical Physician:: Terrance Pantoja
[2018-10-05 22:56] LABS: % BASOPHILS 0.4 % (0.0-2.0); % EOSINOPHILS 0.7 % (0.0-5.0); % LYMPHOCYTES 17.4 % (20.0-50.0); % MONOCYTES 5.9 % (2.0-10.0); % NEUTROPHILS 75.6 % (40.0-80.0); EOSINOPHILE ABSOLUTE 0.1 Th/cmm (0.1-0.4); HEMATOCRIT 36.5 % (41.0-60); MEAN CELL VOLUME 78.8 fl (81-100); MEAN CORPUSCULAR HEMOGLOBIN 25.9 pg (27.0-31.0); MEAN CORPUSCULAR HGB CONC 32.9 pg (28.0-36.0); MEAN PLATELET VOLUME 7.4 fl; MONOCYTE ABSOLUTE 0.7 Th/cmm (0.3-1.0); NEUTROPHILE ABSOLUTE 8.7 Th/cmm (1.8-8.0); PLATELET COUNT 409 Th/cmm (150-400); RED BLOOD COUNT 4.64 Mil/cmm (3.80-5.20); RED CELL DISTRIBUTION WIDTH 13.8 % (11.5-20.0); WHITE BLOOD COUNT 11.5 Th/cmm (4.8-10.8)
[2018-10-05 23:08] LABS: INR 0.98 (0.5-1.4); PROTHROMBIN TIME (TEST) 10.2 SECONDS (9.5-11.5)
[2018-10-05 23:11] LABS: ALB/GLOB RATIO 0.9 (1.0-1.8); ALBUMIN 3.3 gm/dL (3.7-5.3); ALKALINE PHOSPHATASE 66 U/L (34-104); ANION GAP 10.3 (7.0-16.0); BILIRUBIN,TOTAL 0.5 mg/dL (0.3-1.0); BUN - UREA NITROGEN 17 mg/dL (7-25); CALCIUM SERUM 9.3 mg/dL (8.6-10.3); CARBON DIOXIDE 25.5 mEq/L (21.0-31.0); CHLORIDE 103 mEq/L (98-107); CREATININE - SERUM 0.6 mg/dL (0.6-1.2); GLUCOSE 115 mg/dL (70-105); POTASSIUM SERUM 3.8 mEq/L (3.5-5.1); SGOT 12 U/L (13-39); SGPT/ALT 8 U/L (7-52); SODIUM SERUM 135 mEq/L (136-145)
[2018-10-05] MEDS ORDERED: ceFAZolin 1 GM in Sodium Chloride 0.9% 50 ML IV ONE (23:30)
[2018-10-05] MEDS ORDERED: Sodium Chloride 0.9% 1,000 ML IV ONE (23:31)
[2018-10-06 00:33] LABS: URINE SOURCE MIDSTREAM
[2018-10-06 00:35] LABS: URINE BILIRUBIN NEGATIVE (NEGATIVE); URINE BLOOD NEGATIVE (NEGATIVE); URINE GLUCOSE (UA) NEGATIVE (NEGATIVE); URINE KETONE 15 mg/dL (NEGATIVE); URINE LEUKOCYTE ESTERASE NEGATIVE (NEGATIVE); URINE NITRATE NEGATIVE (NEGATIVE); URINE PH 5.5 (4.6 - 8.0); URINE PROTEIN NEGATIVE (NEGATIVE); URINE UROBILINOGEN 0.2 E.U./dL (0.2 - 1.0)
[2018-10-06 00:36] LABS: URINE CLARITY CLEAR (CLEAR); URINE COLOR YELLOW; URINE MICROSCOPIC INDICATED? NO
[2018-10-06] MEDS: ceFAZolin 1 GM in Sodium Chloride 0.9% 50 ML IV SCH ×3 (05:01→22:04)
[2018-10-06 05:47] LABS: % EOSINOPHILS 0.9 % (0.0-5.0); % MONOCYTES 4.8 % (2.0-10.0); % NEUTROPHILS 70.3 % (40.0-80.0); EOSINOPHILE ABSOLUTE 0.1 Th/cmm (0.1-0.4); HEMATOCRIT 32.6 % (41.0-60); HEMOGLOBIN 10.5 gm/dL (12-16); LYMPHOCYTE ABSOLUTE 2.3 Th/cmm (1.5-3.0); MEAN CELL VOLUME 79.3 fl (81-100); MEAN CORPUSCULAR HEMOGLOBIN 25.5 pg (27.0-31.0); MEAN CORPUSCULAR HGB CONC 32.2 pg (28.0-36.0); MEAN PLATELET VOLUME 7.3 fl; MONOCYTE ABSOLUTE 0.5 Th/cmm (0.3-1.0); NEUTROPHILE ABSOLUTE 6.6 Th/cmm (1.8-8.0); PLATELET COUNT 390 Th/cmm (150-400); RED BLOOD COUNT 4.11 Mil/cmm (3.80-5.20); RED CELL DISTRIBUTION WIDTH 13.6 % (11.5-20.0); WHITE BLOOD COUNT 9.5 Th/cmm (4.8-10.8)
[2018-10-06 06:07] LABS: ALB/GLOB RATIO 0.9 (1.0-1.8); ALBUMIN 2.8 gm/dL (3.7-5.3); ALKALINE PHOSPHATASE 55 U/L (34-104); ANION GAP 10.3 (7.0-16.0); BILIRUBIN,TOTAL 0.3 mg/dL (0.3-1.0); BUN - UREA NITROGEN 12 mg/dL (7-25); CALCIUM SERUM 8.4 mg/dL (8.6-10.3); CARBON DIOXIDE 24.1 mEq/L (21.0-31.0); CHLORIDE 108 mEq/L (98-107); CREATININE - SERUM 0.5 mg/dL (0.6-1.2); GLUCOSE 101 mg/dL (70-105); POTASSIUM SERUM 3.4 mEq/L (3.5-5.1); SGOT 9 U/L (13-39); SGPT/ALT 6 U/L (7-52); SODIUM SERUM 139 mEq/L (136-145); TOTAL PROTEIN,SERUM 5.9 gm/dL (6.0-8.3)
[2018-10-06] MEDS ORDERED: Potassium Chloride 20 mEq ER Tab PO ONE ×2 (07:19→08:17)
[2018-10-06] MEDS ORDERED: Magnesium Hydroxide (MOM) 30 mL UDC PO PRN (07:38)
--- NOTE | 2018-10-06 08:14 | History and Physical ---
History of Present Illness - HPI Chief Complaint: Left Breast Mass HPI: 88 y/o female who presents to [facility] for left breast mass. Patient has a PMH of COPD, Dysphagia, Dementia, Psychosis, Depression, Anxiety, Schizophrenia. Patient had a chest xray done in the ER which reveal presence of Left breast mass. Initial labwork done in the ER revealed the following ... WBC 11.5 H/H 12.0/36.5 plat 409K Na 135 K 3.8 Bun/Cr 17/0.6 Glu 115 UA neg Patient was subsequently admitted for further evaluation and treatment. Vital Signs: Last Vital Signs Temp 97.5 F 10/06/18 07:33 Pulse 77 10/06/18 07:33 Resp 18 10/06/18 07:33 BP 102/56 10/06/18 07:33 Pulse Ox 95 10/06/18 07:33 Past Medical History Cardiovascular: Report: No Pertinent Hx Pulmonary: Report: COPD [employer]: Report: No Pertinent Hx GI: Report: No Pertinent Hx Psych: Report: Anxiety, Bipolar, Depression, Psychosis, Schizophrenia Musculoskeletal: Report: No Pertinent Hx Rheumatologic: Report: No pertinent Hx Infectious Disease: Report: No Pertinent Hx Renal/: Report: No Pertinent Hx Endocrine: Report: No Pertinent Hx Dermatology: Report: No Pertinent Hx - Past Surgical History Past Surgical History: No pertinent Hx Family Medical History - Family Member Father History Unknown: Yes Ethnicity: Living Status: Unknown Hx Family Cancer: No Hx Family Coronary Artery Disease: No Hx Family Congestive Heart Failure: No Hx Family Hypertension: No Hx Family Stroke: No Hx Family Diabetes: No Hx Family Seizures: No Hx Family Dementia: No Hx Family AIDS: No Hx Family HIV: No Hx Family COPD: No Hx Family Hepatitis: No Hx Family Psychiatric Problems: No Hx Family Tuberculosis: No Mother History Unknown: Yes Ethnicity: Non- Living Status: Unknown Hx Family Cancer: No Hx Family Coronary Artery Disease: No Hx Family Congestive Heart Failure: No Hx Family Hypertension: No Hx Family Stroke: No Hx Family Diabetes: No Hx Family Seizures: No Hx Family Dementia: No Hx Family AIDS: No Hx Family HIV: No Hx Family COPD: No Hx Family Hepatitis: No Hx Family Psychiatric Problems: No Hx Family Tuberculosis: No Social History Smoke: No Alcohol: None Drugs: None Lives: [facility] - Medications Home Medications: Home Medication Medication Instructions Recorded Type Acetaminophen [Tylenol] 650 mg PO Q4H PRN tab 01/21/18 Rx Docusate Sodium [Colace] 100 mg PO BID cap 01/21/18 Rx Donepezil Hcl [Aricept] 5 mg PO HS tab 01/21/18 Rx Escitalopram Oxalate [Lexapro] 10 mg PO DAILY tab 01/21/18 Rx Magnesium Hydroxide [Milk of 30 ml PO DAILY PRN udc 01/21/18 Rx Magnesia] Memantine [Namenda] 10 mg PO DAILY tab 01/21/18 Rx Alendronate Sodium [Fosamax] 70 mg PO Q7D 07/30/18 History Calcium Carbonate/Vitamin D3 1 each PO QPM 07/30/18 History [Oyster Shell 500-Vit D3 200 Tb] - Allergies Allergies/Adverse Reactions: Allergies Allergy/AdvReac Type Severity Reaction Status Date / Time No Known Allergies Allergy Verified 10/05/18 21:19 Review of Systems - Review of Systems Constitutional: Report: No Significant Eyes: Report: No Significant ENT: Report: No Significant Respiratory: Report: No Significant Cardiovascular: Report: No Significant Gastrointestinal: Report: No Significant Genitourinary: Report: No Significant Musculoskeletal: Report: No Significant Skin: Report: Other (left breast mass) Neurological: Report: No Significant Physical Exam - Physical Exam HEENT: Report: Ears Nose Throat within normal limits, Pharnyx within normal limits Neck: Report: Within normal limits Cardiovascular Systems: Report: +s1/s2 noted, Regular, Rate and Rhythm Respiratory: Report: Breath Sounds are within normal limits Abdomen: Report: Non-tender to palpation Back: Report: Inspection of back is within normal limits. Extremities: Report: Non-tender to palpation. Skin: Report: Other (left breast mass) Neuro/Psych: Report: Mood affect is within normal limits, A+Ox3 - Lab Results All Lab Results last 24 hours: Laboratory Results - last 24 hr 10/05/18 10/05/18 10/05/18 22:45 22:45 22:45 WBC 11.5 H RBC 4.64 Hgb 12.0 Hct 36.5 L MCV 78.8 L MCH 25.9 L MCHC Differential 32.9 RDW 13.8 Plt Count 409 H MPV 7.4 Neutrophils % 75.6 Lymphocytes % 17.4 L Monocytes % 5.9 Eosinophils % 0.7 Basophils % 0.4 PT 10.2 INR 0.98 PTT (Actin FS) 28.5 Sodium 135 L Potassium 3.8 Chloride 103 Carbon Dioxide 25.5 Anion Gap 10.3 BUN 17 Creatinine 0.6 Est GFR ( Amer) TNP Est GFR (Non-Af Amer) TNP BUN/Creatinine Ratio 28.3 Glucose 115 H Calcium 9.3 Total Bilirubin 0.5 AST 12 L ALT 8 Alkaline Phosphatase 66 Total Protein 7.0 Albumin 3.3 L Globulin 3.7 Albumin/Globulin Ratio 0.9 L Urine Source Urine Color Urine Clarity Urine pH Ur Specific [place] Urine Protein Urine Glucose (UA) Urine Ketones Urine Blood Urine Nitrate Urine Bilirubin Urine Urobilinogen Ur Leukocyte Esterase 10/06/18 10/06/18 10/06/18 00:25 05:30 05:30 WBC 9.5 RBC 4.11 Hgb 10.5 L Hct 32.6 L MCV 79.3 L MCH 25.5 L MCHC Differential 32.2 RDW 13.6 Plt Count 390 MPV 7.3 Neutrophils % 70.3 Lymphocytes % 24.0 Monocytes % 4.8 Eosinophils % 0.9 Basophils % 0.0 PT INR PTT (Actin FS) Sodium 139 Potassium 3.4 L Chloride 108 H Carbon Dioxide 24.1 Anion Gap 10.3 BUN 12 Creatinine 0.5 L Est GFR ( Amer) TNP Est GFR (Non-Af Amer) TNP BUN/Creatinine Ratio 24.0 Glucose 101 Calcium 8.4 L Total Bilirubin 0.3 AST 9 L ALT 6 L Alkaline Phosphatase 55 Total Protein 5.9 L Albumin 2.8 L Globulin 3.1 Albumin/Globulin Ratio 0.9 L Urine Source [place] Urine Color YELLOW Urine Clarity CLEAR Urine pH 5.5 Ur Specific [place] 1.020 Urine Protein NEGATIVE Urine Glucose (UA) NEGATIVE Urine Ketones 15 H Urine Blood NEGATIVE Urine Nitrate NEGATIVE Urine Bilirubin NEGATIVE Urine Urobilinogen 0.2 Ur Leukocyte Esterase NEGATIVE - Assessment Assessment: Left breast mass COPD Dysphagia Dementia Psychosis Depression Anxiety Schizophrenia Hypokalemia - Plan Plan: Gen surgical consult continue home meds KDur PO 40meq x 1 dose repeat labwork tomorrow pain control
[2018-10-06] MEDS ORDERED: Hydrocodone/APAP 5mg/325mg Tab PO PRN (08:22)
--- NOTE | 2018-10-06 08:44 | Diagnostic Imaging Report ---
CHEST X-RAY: AP view INDICATION: Left breast mass COMPARISON: Chest x-ray 07/30/2018 FINDINGS: Chronic changes are seen with no focal consolidation or effusions. Cardiomegaly is noted with atherosclerosis. Degenerative changes spine are noted with scoliosis. There appears to be a large left breast mass for which further assessment is recommended. IMPRESSION: There appears to be a large left breast mass for which further assessment is recommended including mammograms and ultrasound. No focal consolidation identified. Cardiomegaly and atherosclerotic vascular disease.
--- NOTE | 2018-10-06 11:00 | Diagnostic Imaging Report ---
Ultrasound of the left breasts HISTORY: Mass COMPARISON: Chest x-ray on 10/05/2018 Technique: Sonography of the left breast was performed in multiple planes. FINDINGS: Exam is limited as patient was uncooperative. There is a complex mass of the left breast with possible both cystic and solid components and possible peripheral calcifications measuring 5.8 x 2.9 x 5.9 cm along the upper breast. IMPRESSION: Complex left upper breast mass with possible solid and cystic components and possible calcifications. Findings may be due to posttraumatic process or infectious process versus neoplastic process. Has patient has previous breast implants? Mammography or CT or MRI would provide for additional clarification.
[2018-10-06] MEDS ORDERED: Calcium Carb/Vit D 500 mg/200 U Tab PO SCH (17:00)
--- NOTE | 2018-10-06 22:06 | General Progress Note ---
Subjective - Review of Systems Service Date: 10/06/18 Objective - Results Result Diagrams: 10/06/18 05:30 10/06/18 05:30 Recent Labs: Laboratory Last Values WBC 9.5 Th/cmm (4.8-10.8) 10/06/18 05:30 RBC 4.11 Mil/cmm (3.80-5.20) 10/06/18 05:30 Hgb 10.5 gm/dL (12-16) L 10/06/18 05:30 Hct 32.6 % (41.0-60) L 10/06/18 05:30 MCV 79.3 fl (81-100) L 10/06/18 05:30 MCH 25.5 pg (27.0-31.0) L 10/06/18 05:30 MCHC Differential 32.2 pg (28.0-36.0) 10/06/18 05:30 RDW 13.6 % (11.5-20.0) 10/06/18 05:30 Plt Count 390 Th/cmm (150-400) 10/06/18 05:30 MPV 7.3 fl 10/06/18 05:30 Neutrophils % 70.3 % (40.0-80.0) 10/06/18 05:30 Lymphocytes % 24.0 % (20.0-50.0) 10/06/18 05:30 Monocytes % 4.8 % (2.0-10.0) 10/06/18 05:30 Eosinophils % 0.9 % (0.0-5.0) 10/06/18 05:30 Basophils % 0.0 % (0.0-2.0) 10/06/18 05:30 PT 10.2 SECONDS (9.5-11.5) 10/05/18 22:45 INR 0.98 (0.5-1.4) 10/05/18 22:45 PTT (Actin FS) 28.5 SECONDS (26.0-38.0) 10/05/18 22:45 Sodium 139 mEq/L (136-145) 10/06/18 05:30 Potassium 3.4 mEq/L (3.5-5.1) L 10/06/18 05:30 Chloride 108 mEq/L (98-107) H 10/06/18 05:30 Carbon Dioxide 24.1 mEq/L (21.0-31.0) 10/06/18 05:30 Anion Gap 10.3 (7.0-16.0) 10/06/18 05:30 BUN 12 mg/dL (7-25) 10/06/18 05:30 Creatinine 0.5 mg/dL (0.6-1.2) L 10/06/18 05:30 Est GFR ( Amer) TNP 10/06/18 05:30 Est GFR (Non-Af Amer) TNP 10/06/18 05:30 BUN/Creatinine Ratio 24.0 10/06/18 05:30 Glucose 101 mg/dL (70-105) 10/06/18 05:30 Calcium 8.4 mg/dL (8.6-10.3) L 10/06/18 05:30 Total Bilirubin 0.3 mg/dL (0.3-1.0) 10/06/18 05:30 AST 9 U/L (13-39) L 10/06/18 05:30 ALT 6 U/L (7-52) L 10/06/18 05:30 Alkaline Phosphatase 55 U/L (34-104) 10/06/18 05:30 Total Protein 5.9 gm/dL (6.0-8.3) L 10/06/18 05:30 Albumin 2.8 gm/dL (3.7-5.3) L 10/06/18 05:30 Globulin 3.1 gm/dL 10/06/18 05:30 Albumin/Globulin Ratio 0.9 (1.0-1.8) L 10/06/18 05:30 Urine Source MIDSTREAM 10/06/18 00:25 Urine Color YELLOW 10/06/18 00:25 Urine Clarity CLEAR (CLEAR) 10/06/18 00:25 Urine pH 5.5 (4.6 - 8.0) 10/06/18 00:25 Ur Specific [place] 1.020 (1.005-1.030) 10/06/18 00:25 Urine Protein NEGATIVE mg/dL (NEGATIVE) 10/06/18 00:25 Urine Glucose (UA) NEGATIVE mg/dL (NEGATIVE) 10/06/18 00:25 Urine Ketones 15 mg/dL (NEGATIVE) H 10/06/18 00:25 Urine Blood NEGATIVE (NEGATIVE) 10/06/18 00:25 Urine Nitrate NEGATIVE (NEGATIVE) 10/06/18 00:25 Urine Bilirubin NEGATIVE (NEGATIVE) 10/06/18 00:25 Urine Urobilinogen 0.2 E.U./dL (0.2 - 1.0) 10/06/18 00:25 Ur Leukocyte Esterase NEGATIVE (NEGATIVE) 10/06/18 00:25 - Physical Exam Vitals and I&O: Vital Signs Temp 98.3 F 10/06/18 16:00 Pulse 57 10/06/18 16:00 Resp 19 10/06/18 16:00 BP 120/64 10/06/18 16:00 Pulse Ox 99 10/06/18 16:00 Intake & Output 10/06/18 10/06/18 10/07/18 06:59 18:59 06:59 Intake Total 50 375 Balance 50 375 Weight (lbs) 47.945 kg 47.945 kg Intake: Intake, IV Amount 50 ceFAZolin 1 gm In Sodium 50 Chloride 0.9% 50 ml @ 100 mls/hr IV Q8HR REPLACED BY [facility] Rx#: [id number] Oral 375 Other: # Voids 1 3 # Bowel Movements 0 Weight Source Bedscale Bedscale Active Medications: Current Medications Acetaminophen (Tylenol) 650 mg PO Q4H PRN PRN Reason: MILD PAIN (LEVEL 1-3) Stop: 12/05/18 07:37 Acetaminophen/Hydrocodone Bitart ([place] 5mg/325mg) 1 tab PO Q6H PRN PRN Reason: Pain (Moderate) Stop: 12/05/18 08:21 Alendronate Sodium (Fosamax) 70 mg PO Q7D REPLACED BY [facility] Stop: 12/06/18 06:29 Calcium/Vitamin D (Oscal W/Vitamin D) 1 tab PO QPM [facility] Stop: 12/05/18 16:59 Last Admin: 10/06/18 16:20 Dose: 1 tab Docusate Sodium (Colace) 100 mg PO BID REPLACED BY [facility] Stop: 12/05/18 08:59 Last Admin: 10/06/18 16:20 Dose: 100 mg Donepezil HCl (Aricept) 5 mg PO HS REPLACED BY [facility] Stop: 12/05/18 20:59 Last Admin: 10/06/18 22:01 Dose: 5 mg Escitalopram Oxalate (Lexapro) 10 mg PO DAILY REPLACED BY [facility]; Protocol Stop: 12/05/18 08:59 Cefazolin Sodium 1 gm/ Sodium (Chloride) 50 mls @ 100 mls/hr IV Q8HR [facility] Stop: 12/05/18 04:59 Last Admin: 10/06/18 13:30 Dose: 100 mls/hr Potassium Chloride 10 meq/ (Sodium Chloride) 1,005 mls @ 50 mls/hr IV .Q20H6M [facility] Stop: 12/05/18 08:29 Last Admin: 10/06/18 10:03 Dose: 50 mls/hr Magnesium Hydroxide (Milk Of Magnesia) 30 ml PO DAILY PRN PRN Reason: Constipation Stop: 12/05/18 07:37 Memantine (Namenda) 10 mg PO DAILY [facility] Stop: 12/05/18 08:59 Last Admin: 10/06/18 08:33 Dose: 10 mg Other physical findings: L breast mass 5cm - Procedures Procedures: Procedures Procedure Code Date GROUP PSYCHOTHERAPY 41342 10/12/15 GROUP PSYCHOTHERAPY GZHZZZZ 10/12/15 GROUP PSYCHOTHERAPY 37846 03/15/15 GROUP PSYCHOTHERAPY GZHZZZZ 03/15/15 OTHER GROUP THERAPY 94.44 12/18/14 Assessment/Plan - Assessment Assessment: 88F PMH: COPD, dysphagia, dementia, psychosis, depression, schizophrenia noted with L breast mass 5cm afebrile VSS mild leukocytosis WBC 11.[address] chest to further evaluate consider core needle bx for definitive dx or consideration for excisional bx/ mastectomy. - Plan Plan: consider core needle bx for definitive dx or consideration for excisional bx/ mastectomy.
[2018-10-07] MEDS: ceFAZolin 1 GM in Sodium Chloride 0.9% 50 ML IV SCH (05:03)
[2018-10-07 06:06] LABS: ALB/GLOB RATIO 0.9 (1.0-1.8); ALBUMIN 2.9 gm/dL (3.7-5.3); ALKALINE PHOSPHATASE 65 U/L (34-104); ANION GAP 10.6 (7.0-16.0); BILIRUBIN,TOTAL 0.3 mg/dL (0.3-1.0); BUN - UREA NITROGEN 7 mg/dL (7-25); CALCIUM SERUM 8.7 mg/dL (8.6-10.3); CHLORIDE 108 mEq/L (98-107); CREATININE - SERUM 0.5 mg/dL (0.6-1.2); GLUCOSE 98 mg/dL (70-105); POTASSIUM SERUM 3.6 mEq/L (3.5-5.1); SGOT 10 U/L (13-39); SGPT/ALT 5 U/L (7-52); SODIUM SERUM 138 mEq/L (136-145); TOTAL PROTEIN,SERUM 6.1 gm/dL (6.0-8.3)
--- NOTE | 2018-10-07 08:06 | General Progress Note ---
Subjective - Review of Systems Service Date: 10/07/18 Subjective: Patient was seen and evaluated. Vital Stable. No acute pain. wants to go home. Objective - Results Result Diagrams: 10/06/18 05:30 10/07/18 05:20 Recent Labs: Laboratory Last Values WBC 9.5 Th/cmm (4.8-10.8) 10/06/18 05:30 RBC 4.11 Mil/cmm (3.80-5.20) 10/06/18 05:30 Hgb 10.5 gm/dL (12-16) L 10/06/18 05:30 Hct 32.6 % (41.0-60) L 10/06/18 05:30 MCV 79.3 fl (81-100) L 10/06/18 05:30 MCH 25.5 pg (27.0-31.0) L 10/06/18 05:30 MCHC Differential 32.2 pg (28.0-36.0) 10/06/18 05:30 RDW 13.6 % (11.5-20.0) 10/06/18 05:30 Plt Count 390 Th/cmm (150-400) 10/06/18 05:30 MPV 7.3 fl 10/06/18 05:30 Neutrophils % 70.3 % (40.0-80.0) 10/06/18 05:30 Lymphocytes % 24.0 % (20.0-50.0) 10/06/18 05:30 Monocytes % 4.8 % (2.0-10.0) 10/06/18 05:30 Eosinophils % 0.9 % (0.0-5.0) 10/06/18 05:30 Basophils % 0.0 % (0.0-2.0) 10/06/18 05:30 PT 10.2 SECONDS (9.5-11.5) 10/05/18 22:45 INR 0.98 (0.5-1.4) 10/05/18 22:45 PTT (Actin FS) 28.5 SECONDS (26.0-38.0) 10/05/18 22:45 Sodium 138 mEq/L (136-145) 10/07/18 05:20 Potassium 3.6 mEq/L (3.5-5.1) 10/07/18 05:20 Chloride 108 mEq/L (98-107) H 10/07/18 05:20 Carbon Dioxide 23.0 mEq/L (21.0-31.0) 10/07/18 05:20 Anion Gap 10.6 (7.0-16.0) 10/07/18 05:20 BUN 7 mg/dL (7-25) 10/07/18 05:20 Creatinine 0.5 mg/dL (0.6-1.2) L 10/07/18 05:20 Est GFR ( Amer) TNP 10/07/18 05:20 Est GFR (Non-Af Amer) TNP 10/07/18 05:20 BUN/Creatinine Ratio 14.0 10/07/18 05:20 Glucose 98 mg/dL (70-105) 10/07/18 05:20 Calcium 8.7 mg/dL (8.6-10.3) 10/07/18 05:20 Total Bilirubin 0.3 mg/dL (0.3-1.0) 10/07/18 05:20 AST 10 U/L (13-39) L 10/07/18 05:20 ALT 5 U/L (7-52) L 10/07/18 05:20 Alkaline Phosphatase 65 U/L (34-104) 10/07/18 05:20 Total Protein 6.1 gm/dL (6.0-8.3) 10/07/18 05:20 Albumin 2.9 gm/dL (3.7-5.3) L 10/07/18 05:20 Globulin 3.2 gm/dL 10/07/18 05:20 Albumin/Globulin Ratio 0.9 (1.0-1.8) L 10/07/18 05:20 Urine Source MIDSTREAM 10/06/18 00:25 Urine Color YELLOW 10/06/18 00:25 Urine Clarity CLEAR (CLEAR) 10/06/18 00:25 Urine pH 5.5 (4.6 - 8.0) 10/06/18 00:25 Ur Specific [place] 1.020 (1.005-1.030) 10/06/18 00:25 Urine Protein NEGATIVE mg/dL (NEGATIVE) 10/06/18 00:25 Urine Glucose (UA) NEGATIVE mg/dL (NEGATIVE) 10/06/18 00:25 Urine Ketones 15 mg/dL (NEGATIVE) H 10/06/18 00:25 Urine Blood NEGATIVE (NEGATIVE) 10/06/18 00:25 Urine Nitrate NEGATIVE (NEGATIVE) 10/06/18 00:25 Urine Bilirubin NEGATIVE (NEGATIVE) 10/06/18 00:25 Urine Urobilinogen 0.2 E.U./dL (0.2 - 1.0) 10/06/18 00:25 Ur Leukocyte Esterase NEGATIVE (NEGATIVE) 10/06/18 00:25 - Physical Exam Vitals and I&O: Vital Signs Temp 96.6 F 10/07/18 07:38 Pulse 89 10/07/18 07:38 Resp 19 10/07/18 07:38 BP 125/66 10/07/18 07:38 Pulse Ox 94 10/07/18 07:38 Intake & Output 10/06/18 10/07/18 10/07/18 18:59 06:59 18:59 Intake Total 425 50 Balance 425 50 Weight (lbs) 47.945 kg Intake: Intake, IV Amount 50 50 ceFAZolin 1 gm In Sodium 50 50 Chloride 0.9% 50 ml @ 100 mls/hr IV Q8HR [facility] Rx#: [id number] Oral 375 Other: # Voids 3 Weight Source Bedscale Active Medications: Current Medications Acetaminophen (Tylenol) 650 mg PO Q4H PRN PRN Reason: MILD PAIN (LEVEL 1-3) Stop: 12/05/18 07:37 Acetaminophen/Hydrocodone Bitart ([place] 5mg/325mg) 1 tab PO Q6H PRN PRN Reason: Pain (Moderate) Stop: 12/05/18 08:21 Alendronate Sodium (Fosamax) 70 mg PO Q7D [facility] Stop: 12/06/18 06:29 Last Admin: 10/07/18 06:52 Dose: 70 mg Calcium/Vitamin D (Oscal W/Vitamin D) 1 tab PO QPM [facility] Stop: 12/05/18 16:59 Last Admin: 10/06/18 16:20 Dose: 1 tab Docusate Sodium (Colace) 100 mg PO BID [facility] Stop: 12/05/18 08:59 Last Admin: 10/06/18 16:20 Dose: 100 mg Donepezil HCl (Aricept) 5 mg PO HS [facility] Stop: 12/05/18 20:59 Last Admin: 10/06/18 22:01 Dose: 5 mg Escitalopram Oxalate (Lexapro) 10 mg PO DAILY [facility]; Protocol Stop: 12/05/18 08:59 Cefazolin Sodium 1 gm/ Sodium (Chloride) 50 mls @ 100 mls/hr IV Q8HR [facility] Stop: 12/05/18 04:59 Last Admin: 10/07/18 05:03 Dose: 100 mls/hr Potassium Chloride 10 meq/ (Sodium Chloride) 1,005 mls @ 50 mls/hr IV .Q20H6M [facility] Stop: 12/05/18 08:29 Last Admin: 10/06/18 10:03 Dose: 50 mls/hr Magnesium Hydroxide (Milk Of Magnesia) 30 ml PO DAILY PRN PRN Reason: Constipation Stop: 12/05/18 07:37 Memantine (Namenda) 10 mg PO DAILY [facility] Stop: 12/05/18 08:59 Last Admin: 10/06/18 08:33 Dose: 10 mg General: Alert, No acute distress HEENT: Atraumatic, PERRLA, EOMI Neck: Supple, no JVD Cardiovascular: Regular rate, Normal S1, Normal S2 Lungs: Clear to auscultation Abdomen: Bowel sounds, Soft, no Distended Extremities: no Clubbing, no Cyanosis, no Edema Neurological: Normal gait, Normal speech Skin: Other (presence of left breast mass) - Procedures Procedures: Procedures Procedure Code Date GROUP PSYCHOTHERAPY 25997 10/12/15 GROUP PSYCHOTHERAPY GZHZZZZ 10/12/15 GROUP PSYCHOTHERAPY 21037 03/15/15 GROUP PSYCHOTHERAPY GZHZZZZ 03/15/15 OTHER GROUP THERAPY 94.44 12/18/14 Assessment/Plan - Assessment Assessment: Left breast mass COPD Dysphagia Dementia Psychosis Depression Anxiety Schizophrenia Hypokalemia - Plan Plan: will dc back to SNF and arrange for core needle biopsy to be done as outpatient.
--- NOTE | 2018-10-08 14:01 | Discharge Summary ---
DATE OF DISCHARGE: 10/07/2018 PRELIMINARY DIAGNOSES: 1. Left breast mass. 2. Chronic obstructive pulmonary disease. 3. Dysphagia. 4. Dementia. 5. Depression. 6. Anxiety. 7. Schizophrenia. 8. Hypokalemia. DISCHARGE DIAGNOSES: 1. Left breast mass. 2. Chronic obstructive pulmonary disease. 3. Dysphagia. 4. Dementia. 5. Depression. 6. Anxiety. 7. Schizophrenia. 8. Hypokalemia. BRIEF HISTORY OF PRESENT ILLNESS: This is an 88-year-old female who presents to [facility] ER from [facility] for left breast mass with swelling and tenderness. The patient was noted to have swelling to the left breast noted at the [facility] and was sent here for further evaluation and treatment. The patient has a past medical history of COPD, dysphagia, dementia, psychosis, depression, anxiety and schizophrenia. While in the ER, she had a chest x-ray, which revealed the presence of the left breast mass. Initial lab work done in the ER revealed white count 11.9, slightly elevated hemoglobin 12.0, hematocrit 36.5, platelets 409,000. Sodium 135, potassium 3.8, BUN 17, creatinine 0.6, glucose 115. UA was essentially negative. The patient was subsequently admitted for further evaluation and treatment. HOSPITAL COURSE: The patient was seen and evaluated by Dr. Alberts. Please see dictated report. During the course of treatment, patient's lab work was repeated showing normal white count of 9.5. The patient was started on IV antibiotics. Blood cultures and wound cultures were ordered, which came back negative and the potassium was also noted at 3.4. The patient was given potassium supplementation. Repeat lab work following day revealed a normal potassium of 3.6 The patient was subsequently discharged back to the skilled facility, it was recommended that she obtain a core needle biopsy of the left breast to be done as an outpatient. JOB# [id number]
== END 2018-10-07 13:29 | DRG 600 ==
LOC: ER 21:12 → MSI 10-06 01:15
PROVIDERS: ADMIT Family Medicine; ATTEND Family Medicine
DX: N63.0 Unspecified lump in unspecified breast (principal); E87.1 Hypo-osmolality and hyponatremia; J44.9 Chronic obstructive pulmonary disease, unspecified; R13.10 Dysphagia, unspecified; F29 Unspecified psychosis not due to a substance or known physiological condition; F32.9 Major depressive disorder, single episode, unspecified; F41.9 Anxiety disorder, unspecified; F20.9 Schizophrenia, unspecified; E87.6 Hypokalemia; D72.829 Elevated white blood cell count, unspecified; M81.0 Age-related osteoporosis without current pathological fracture; G30.9 Alzheimer's disease, unspecified; F02.80 Dementia in other diseases classified elsewhere, unspecified severity, without behavioral disturbance, psychotic disturbance, mood disturbance, and anxiety
CPT/HCPCS: 36415-UA; 71045-TC; 76642; 80053-TC; 81003-TC; 85025-TC; 85610-TC; J0690; J3480; J7030; Z7610